=== PATIENT | female | born 1995 | race Caucasian/White ===

== ENCOUNTER → 2020-02-18 08:30 | Outpatient (CLI) | payer OTHER, SELFPAY ==
[2020-02-18] MEDS: COVID-19 VACC(MODERNA-1)/PF 100 MCG/0.5 ML VIAL IM (08:40)
== END ==
PROVIDERS: Visit Provider Internal Medicine
DX: Z23 Encounter for immunization (principal)
CPT/HCPCS: 0011A; 91301

== ENCOUNTER → 2020-03-16 08:43 | Outpatient (CLI) | payer OTHER, SELFPAY ==
[2020-03-16] MEDS: COVID-19 VACC #2, MRNA(MOD) 100 MCG/0.5 ML VIAL IM (08:47)
== END ==
PROVIDERS: Visit Provider Internal Medicine
DX: Z23 Encounter for immunization (principal)
CPT/HCPCS: 0012A; 91301

== ENCOUNTER → 2020-09-19 10:12 | Outpatient (CLI) | payer OTHER, SELFPAY ==
[2020-09-19 13:22] LABS: COVID19 -Nasal RAPID Negative (Negative)
== END ==
PROVIDERS: Visit Provider Nurse Practitioner
DX: R43.2 Parageusia (principal); Z20.822 Contact with and (suspected) exposure to COVID-19
CPT/HCPCS: 87635

== ENCOUNTER → 2020-11-25 11:23 | Outpatient (CLI) | payer OTHER, SELFPAY ==
[2020-11-25 13:19] LABS: COVID19 -Nasal RAPID Negative (Negative)
== END ==
PROVIDERS: Referring Provider Nurse Practitioner; Visit Provider Nurse Practitioner
DX: Z20.822 Contact with and (suspected) exposure to COVID-19 (principal)
CPT/HCPCS: 87635

== ENCOUNTER → 2021-02-10 09:13 | Outpatient (CLI) | payer OTHER, SELFPAY ==
[2021-02-10 09:42] LABS: COVID19 -Nasal RAPID Negative (Negative)
== END ==
PROVIDERS: Visit Provider Nurse Practitioner Family
DX: Z20.822 Contact with and (suspected) exposure to COVID-19 (principal)
CPT/HCPCS: 87635

== ENCOUNTER → 2021-05-08 08:16 | Outpatient (CLI) | payer OTHER, SELFPAY ==
--- NOTE | 2021-05-08 08:18 | DI.US.S_ITS ---
PROCEDURE: US OB <= 14 WEEKS FETUS INDICATIONS: DATES OUTSIDE/PRIOR DATING DATA: Last menstrual period (LMP): Unknown LMP-based estimated date of delivery (SUKHWINDER): Not applicable. First dating scan (date and location): 05/08/2021. Estimated date of delivery (SUKHWINDER) from first dating scan: 11/30/2021. The calculations are made using the ultrasound derived SUKHWINDER of 12/02/2021. TECHNIQUE: Real-time scanning was performed of the fetus and maternal pelvic organs, with image documentation. Endovaginal scanning was also performed to better visualize the fetus and maternal ovaries. COMPARISON: None. FINDINGS: Cooter-rump length 3.7 centimeters. heart rate 160 beats per minute. Ovaries unremarkable. IMPRESSION: Single live intrauterine gestation with estimated ultrasound age 10 weeks 4 days. We strive to produce accurate, complete, and clear reports of imaging services. To assist us in improving patient care, this report was composed using standard report templates and voice recognition software. Therefore, it may contain abnormal punctuation, insertions and/or omissions. Occasional wrong-word or sound-alike substitutions may occur. Though we review the report and make efforts to correct it, we do recommend that the report be read carefully in proper context to recognize any text inaccuracies. Dictated by: Abrahan Noble M.D. on 05/08/2021 at 9:40 Approved by: Abrahan Noble M.D. on 05/08/2021 at 9:42
[2021-05-08 09:49] LABS: Add Manual Diff / Slide Review NO; Basophils Absolute Auto 0 /uL (0-100); Basophils Percent Auto 0.1 % (0-2); Eosinophils Absolute Auto 100 /uL (0-450); Eosinophils Percent Auto 0.8 % (2-4); Hematocrit 37.1 % (36-46); Hemoglobin 12.9 g/dL (12.0-16.0); Lymphocytes Absolute Auto 2100 /uL (1100-4500); Lymphocytes Percent Auto 19.9 % (25-40); Mean Corpuscular HGB Conc 34.6 % (30-36); Mean Corpuscular Hemoglobin 31.2 PG (26-34); Mean Corpuscular Volume 90.1 fL (80-100); Monocytes Absolute Auto 500 /uL (0-900); Monocytes Percent Auto 4.8 % (3-14); Neutrophils Absolute Auto 7700 /uL (1500-7000); Neutrophils Percent Auto 74.4 % (50-75); Platelet Count 247 X10^3/uL (150-400); Red Blood Cell Count 4.12 X10^6/uL (4.0-5.2); Red Cell Distribution Width 12.9 % (11.6-14.8); White Blood Cell Count 10.4 X10^3/uL (4.5-11.0)
[2021-05-08 17:51] LABS: Hepatitis B Surface Antigen NEGATIVE s/c (NEGATIVE); Rubella Antibody IgG 15.5 IU/mL (>15)
[2021-05-08 18:08] LABS: HIV 1 & 2 Ab/Ag 4th Gen Combo NEGATIVE (NEGATIVE); Hep C Virus Ab w/Reflex Quant NEGATIVE s/c (NEGATIVE)
[2021-05-09 04:37] LABS: RPR Screen Non Reactive (Non Reactive)
[2021-05-09 15:46] LABS: Varicella IgG Antibody <135 index (Immune >165)
== END ==
PROVIDERS: PCP Internal Medicine; Referring Provider Obstetrics & Gynecology; Visit Provider Obstetrics & Gynecology
DX: Z34.01 Encounter for supervision of normal first pregnancy, first trimester (principal); Z3A.10 10 weeks gestation of pregnancy
CPT/HCPCS: 36415; 76801; 76817; 80055; 86787; 86803; 86850; 86900; 86901; 87389

== ENCOUNTER → 2021-05-10 09:37 | Outpatient (CLI) | payer OTHER, SELFPAY ==
[2021-05-10 10:08] LABS: Appearance Urine UA CLEAR; Bilirubin Urine UA NEGATIVE (NEGATIVE); Color Urine UA YELLOW; Glucose Urine UA TRACE g/dL (Negative); Ketones Urine UA NEGATIVE (NEGATIVE); Leukocyte Esterase Urine UA 1+ (NEGATIVE); Nitrite Urine UA NEGATIVE (Negative); Occult Blood Urine UA NEGATIVE (Negative); Protein Urine UA NEGATIVE (Negative); Specific Gravity Urine UA 1.015 (1.000-1.035); Urobilinogen Urine UA 0.2 E.U./dL (0.2)
[2021-05-10 10:10] LABS: RBC Urine None Seen (0-5/HPF); WBC Urine 1-5/HPF (0-5/HPF); pH Urine UA 6.5 (4.5-8.0)
[2021-05-10 10:11] LABS: Amorphous Sediment Urine 1+; Bacteria Urine None Seen; Culture Indicated Urine Cult Not Indicated
[2021-05-10 12:16] LABS: Urine N gonorrhoeae NOT DETECTED
[2021-05-10 12:23] LABS: Urine Chlamydia NOT DETECTED
== END ==
PROVIDERS: PCP Internal Medicine; Referring Provider Obstetrics & Gynecology; Visit Provider Obstetrics & Gynecology
DX: Z34.01 Encounter for supervision of normal first pregnancy, first trimester (principal); Z3A.10 10 weeks gestation of pregnancy; Z34.00 Encounter for supervision of normal first pregnancy, unspecified trimester
CPT/HCPCS: 81003; 81015; 87086; 87491; 87591

== ENCOUNTER → 2021-07-05 09:07 | Outpatient (CLI) | payer OTHER, BC, SELFPAY ==
[2021-07-07 20:35] LABS: Estriol, Free 1.85 ng/mL (.); Inhibin A, Dimeric 282.94 pg/mL (.); Inhibin A, MoM 2.29 (.); Maternal Ethnicity Caucasian (.); Maternal Weight 223 lbs (.); Number of Fetuses No (.); OSBR Risk 1 IN 2886 (.); Results Report (.); Test Results *Screen Negative* (.); hCG, MoM 1.19 (.); hCG, Serum 26456 mIU/mL (.)
== END ==
PROVIDERS: PCP Internal Medicine; Referring Provider Obstetrics & Gynecology; Visit Provider Obstetrics & Gynecology
DX: Z34.02 Encounter for supervision of normal first pregnancy, second trimester (principal); Z3A.18 18 weeks gestation of pregnancy
CPT/HCPCS: 36415; 82105; 82677; 84702; 86336

== ENCOUNTER → 2021-07-17 07:59 | Outpatient (CLI) | payer OTHER, BC, SELFPAY ==
--- NOTE | 2021-07-17 08:01 | DI.US.S_ITS ---
PROCEDURE: US OB >= 14 WEEKS FETUS INDICATIONS: 20 Week Anatomy Scan OUTSIDE/PRIOR DATING DATA: First dating scan (date and location): 05/08/2021. Estimated date of delivery (SUKHWINDER) from first dating scan: 11/30/2021. TECHNIQUE: Real-time scanning was performed of the fetus, with image documentation and biometric measurements. COMPARISON: [facility], , OB <= 14 WEEKS FETUS, 05/08/2021, 8:24. FINDINGS: General: A single living intrauterine gestation is present. Presentation: Vertex. Placenta: Placental position is posterior, without previa. Amniotic fluid index: 12.6 cm, normal range is 5-24 cm. Single deepest vertical pocket is 4.1 cm. heart rate: 145 beats per minute. Maternal cervical canal: 5.3 cm long. Normal lower limit is 2.5 cm. biometrics: Biparietal diameter: 4.6 cm, 20 weeks 0 days Head circumference: 17.7 cm, 20 weeks 1 day Abdominal circumference: 15.7 cm, 20 weeks 6 days Femur length: 3.7 cm, 21 weeks 4 days Clinically estimated gestational age: 20 weeks 4 days Composite gestational age from present scan: 20 weeks 5 days Estimated weight and percentile: 394 g, 71st percentile Anatomic survey: Neuro: Ventricles are non-dilated at less than 10 mm. Cisterna magna is normal at 3-11 mm. Cerebellum is normal in size and morphology. Nuchal skin fold: Normal at less than 6 mm between 14-21 weeks gestational age. Face: Nose and lips, facial profile are normal. Spine: No evidence for spina bifida. Heart: 4-chambered heart is present, with normal ventricular outflow tracts. Diaphragm: Diaphragm is intact. Stomach: Left-sided stomach is present. Kidneys: No hydronephrosis. Normal is less than 5 mm in 2nd trimester, less than 7 mm in 3rd trimester. Cord: 3-vessel cord has orthotopic insertion. Bladder: Normal in size. Extremities: All 4 extremities identified. IMPRESSION: 1. Peña living intrauterine at 20 weeks 5 days based on today's ultrasound. This is concordant with the prior ultrasound. There is expected interval growth. 2. Normal placenta and amniotic fluid. 3. Normal and complete anatomic survey. We strive to produce accurate, complete, and clear reports of imaging services. To assist us in improving patient care, this report was composed using standard report templates and voice recognition software. Therefore, it may contain abnormal punctuation, insertions and/or omissions. Occasional wrong-word or sound-alike substitutions may occur. Though we review the report and make efforts to correct it, we do recommend that the report be read carefully in proper context to recognize any text inaccuracies. Dictated by: Tito Barillas M.D. on 07/17/2021 at 9:47 Approved by: Tito Barillas M.D. on 07/17/2021 at 9:51
== END ==
PROVIDERS: PCP Internal Medicine; Referring Provider Obstetrics & Gynecology; Visit Provider Obstetrics & Gynecology
DX: Z34.02 Encounter for supervision of normal first pregnancy, second trimester (principal); Z3A.20 20 weeks gestation of pregnancy
CPT/HCPCS: 76811

== ENCOUNTER → 2021-09-20 10:47 | Outpatient (CLI) | payer OTHER, BC, SELFPAY ==
[2021-09-20 12:46] LABS: Hematocrit 37.2 % (36-46)
[2021-09-20 13:13] LABS: GTT (PREG) 1 Hour PP 50gm Dose 115 mg/dL (76-139)
== END ==
PROVIDERS: PCP Internal Medicine; Referring Provider Obstetrics & Gynecology; Visit Provider Obstetrics & Gynecology
DX: Z34.02 Encounter for supervision of normal first pregnancy, second trimester (principal); Z3A.26 26 weeks gestation of pregnancy
CPT/HCPCS: 36415; 82950; 85014; 85018

== ENCOUNTER → 2021-09-21 15:14 | Outpatient (CLI) | payer OTHER, BC, SELFPAY | PROVIDERS: PCP Internal Medicine; Visit Provider Physician Assistant Medical | DX: R82.90 Unspecified abnormal findings in urine (principal) | CPT/HCPCS: 87086 ==

== ENCOUNTER → 2021-09-28 10:59 | Outpatient (CLI) | payer OTHER, BC, SELFPAY ==
--- NOTE | 2021-09-28 11:00 | DI.US.S_ITS ---
PROCEDURE: US OB FOLLOW UP INDICATIONS: Growth US OUTSIDE/PRIOR DATING DATA: Last menstrual period (LMP): Not available. LMP-based estimated date of delivery (SUKHWINDER): Not available. First dating scan (date and location): 04/30/2021 at . Estimated date of delivery (SUKHWINDER) from first dating scan: 11/30/2021. TECHNIQUE: Real-time scanning was performed of the fetus, with image documentation and biometric measurements. Endovaginal scanning: Not performed. COMPARISON: [facility], OB >= 14 WEEKS FETUS, 07/17/2021, 9:14. [facility], OB <= 14 WEEKS FETUS, 05/08/2021, 8:24. FINDINGS: General: A single living intrauterine gestation is present. Presentation: Breech. Placenta: Placental position is posterior , without previa. Amniotic fluid index: 13.0 cm, normal range is 5-24 cm. Single deepest vertical pocket is 3.3 cm. heart rate: 163 beats per minute. Maternal cervical canal: 5.5 cm long. Normal lower limit is 2.5 cm. biometrics: Biparietal diameter: 31 weeks 3 days Head circumference: 31 weeks 3 days Abdominal circumference: 30 weeks 6 days Femur length: 31 weeks 2 days Clinically estimated gestational age: 30 weeks 6 days Composite gestational age from present scan: 31 weeks 2 days Estimated weight and percentile: 1698 g; 45% Other: Not applicable. IMPRESSION: 1. A single living intrauterine gestation with appropriate interval growth. 2. Estimated weight is at the 45th percentile. We strive to produce accurate, complete, and clear reports of imaging services. To assist us in improving patient care, this report was composed using standard report templates and voice recognition software. Therefore, it may contain abnormal punctuation, insertions and/or omissions. Occasional wrong-word or sound-alike substitutions may occur. Though we review the report and make efforts to correct it, we do recommend that the report be read carefully in proper context to recognize any text inaccuracies. Dictated by: Akosua Ramirez M.D. on 09/29/2021 at 10:46 Approved by: Akosua Ramirez M.D. on 09/29/2021 at 10:49
== END ==
PROVIDERS: PCP Internal Medicine; Referring Provider Obstetrics & Gynecology; Visit Provider Obstetrics & Gynecology
DX: Z3A.30 30 weeks gestation of pregnancy; Z36.2 Encounter for other antenatal screening follow-up
CPT/HCPCS: 76816

== ENCOUNTER → 2021-10-18 08:38 | Outpatient (CLI) | payer OTHER, BC, SELFPAY | PROVIDERS: PCP Internal Medicine; Visit Provider Obstetrics & Gynecology | DX: R31.9 Hematuria, unspecified (principal) | CPT/HCPCS: 87077; 87086; 87186 ==

== ENCOUNTER → 2021-11-08 13:42 | Outpatient (CLI) | payer OTHER, BC, SELFPAY ==
[2021-11-09 16:55] LABS: Strep Grp B PCR POS for Grp B Strep
== END ==
PROVIDERS: PCP Internal Medicine; Visit Provider Obstetrics & Gynecology
DX: Z34.03 Encounter for supervision of normal first pregnancy, third trimester (principal); Z3A.36 36 weeks gestation of pregnancy
CPT/HCPCS: 87077; 87086; 87186; 87653

== ENCOUNTER → 2021-11-15 13:39 | Outpatient (CLI) | payer OTHER, BC, SELFPAY ==
[2021-11-15 15:56] LABS: Protein (Total) Urine Random 16 mg/dL (0-12); Protein Creatinine Ratio Urine 0.22 GRAM/24H
== END ==
PROVIDERS: PCP Internal Medicine; Visit Provider Obstetrics & Gynecology
DX: O16.3 Unspecified maternal hypertension, third trimester (principal); R80.9 Proteinuria, unspecified; Z3A.37 37 weeks gestation of pregnancy
CPT/HCPCS: 82570; 84156

== ENCOUNTER → 2021-11-15 13:46 | Outpatient (CLI) | payer OTHER, BC, SELFPAY ==
[2021-11-15 14:06] LABS: Add Manual Diff / Slide Review NO; Basophils Absolute Auto 0 /uL (0-100); Basophils Percent Auto 0.3 % (0-2); Eosinophils Absolute Auto 100 /uL (0-450); Eosinophils Percent Auto 0.5 % (2-4); Hematocrit 40.4 % (36-46); Hemoglobin 13.8 g/dL (12.0-16.0); Lymphocytes Absolute Auto 1800 /uL (1100-4500); Lymphocytes Percent Auto 15.9 % (25-40); Mean Corpuscular HGB Conc 34.1 % (30-36); Mean Corpuscular Hemoglobin 30.9 PG (26-34); Mean Corpuscular Volume 90.8 fL (80-100); Monocytes Absolute Auto 700 /uL (0-900); Monocytes Percent Auto 6.3 % (3-14); Neutrophils Absolute Auto 8600 /uL (1500-7000); Platelet Count 289 X10^3/uL (150-400); Red Blood Cell Count 4.45 X10^6/uL (4.0-5.2); Red Cell Distribution Width 14.7 % (11.6-14.8); White Blood Cell Count 11.2 X10^3/uL (4.5-11.0)
[2021-11-15 14:18] LABS: Alanine Aminotransferase 183 IU/L (<35); Albumin 3.3 g/dL (3.5-5.0); Albumin Globulin Ratio 0.9 (1.0-2.8); Alkaline Phosphatase 182 U/L (38-126); Aspartate Aminotransferase 136 IU/L (14-36); BUN Creatinine Ratio 11.8 (6-22); Bilirubin Total 0.6 mg/dL (0.2-1.3); Blood Urea Nitrogen 6 mg/dL (7-17); Calcium 8.5 mg/dL (8.4-10.2); Carbon Dioxide 19 mmol/L (22-32); Chloride 108 mmol/L (98-107); Estimated Glomerular Filt Rate > 60 mL/min (>60); Globulin 3.6 g/dL (1.7-4.1); Glucose 120 mg/dL (70-100); HEMOLYSIS < 15 (0-50); Potassium 4.2 mmol/L (3.4-5.1); Sodium 137 mmol/L (137-145); Total Protein 6.9 g/dL (6.3-8.2); Uric Acid 3.8 mg/dL (2.5-6.2)
== END ==
PROVIDERS: PCP Internal Medicine; Referring Provider Obstetrics & Gynecology; Visit Provider Obstetrics & Gynecology
DX: O16.3 Unspecified maternal hypertension, third trimester (principal); R80.9 Proteinuria, unspecified
CPT/HCPCS: 36415; 80053; 84550; 85025

== ENCOUNTER 2021-11-15 13:50 | Observation (INO) | payer OTHER, BC, SELFPAY ==
--- NOTE | 2021-11-15 15:35 | P.HPOB_ITS ---
OB HPI Date/Time Date of admission: 11/15/21 Date Patient Seen: 11/15/21 Time Patient Seen: 15:35 History of Present Condition Chief complaint: IUP, 37+3 wks. EGA, PEC w/ severe features, GBS+ : 1 Para: 0 Estimated Date of Delivery: 12/03/21 Estimated Gestational Age (weeks): 37+3 Narrative: Taty Woods is a 26 year old female Indications Indication for induction OB: gestational HTN/pre-eclampsia History of Present care: good care Dating criteria: LMP confirmed by 1st trimester US Ultrasounds: normal 1st trimester US and normal mid trimester US Obstetrical complications: gestational hypertension Preadmission Labs Blood type: A (+) positive -: Antibody screen: negative, GBS status: negative, HBsAG: negative, HIV: negative and RPR/VDLR: negative -: Chlamydia screen: not detected and Gonorrhea screen: not detected -: Rubella: immune and Varicella: not immune HCT: 40.4 HCAB: negative PAP: Normal Quad screen: Normal 1 hr GTT: 115 Prior (ies) History: N/A Evaluation Evaluation Baseline heart rate: 155 Variability: Moderate (11-25) monitor accelerations: Present Monitor Decelerations: Absent Category of Tracing: Reactive [facility] Medical History (Updated 11/15/21 @ 13:53 by Christopher Flores MD) Acne (~2007) Allergy to nuts Asthma (1997) Asthma (~1993) Eczema (1995) Eczema (~1993) Food allergy Fx wrist Seasonal allergies Surgical History (Updated 06/26/21 @ 09:02 by Camilo Raymond) Anesthesia Anesthesia Encounter for cholecystectomy (~2013) Encounter for insertion of mirena IUD (~09/2016) History of bladder surgery History of third molar tooth extraction (01/2011) Status post laparoscopic cholecystectomy (12/2013) Status post urinary system surgery (12/1994) [place] teeth removed (~2009) Family History (System 06/26/21 @ 09:02 by Camilo Raymond) Father No problems noted. Mother Hypertension Grandfather Aortic rupture Grandmother Diabetes mellitus Heart disease Hypertension Grandfather Hypertension Grandmother Cancer Lung cancer Heart disease Smoker Father Hypertension Mother Clotting disorder Pulmonary emboli Spontaneous Vanishing twin syndrome Hypertension Grandmother Diabetes mellitus Hypertension Grandfather History of heart disease Grandfather Hypertension Grandmother Cancer Hypertension Smoker Social History (System 06/26/21 @ 09:02 by Camilo Raymond) marital status: number of children: 0 household members: spouse lives independently: Yes pets and animals: Yes (Dog - aware of toxoplasmosis) education level: college occupational status: employed current occupational exposures/hazards: No charli/adventism: [employer] seatbelt use: always water heater temp set < 120 deg: Yes working smoke detector in home: Yes fire extinguisher in home: No (Home security system) carbon monox detector in home: Yes firearms in home: Yes firearms unloaded and locked: Yes do you feel safe at home: Yes Smoking Status: Never smoker second hand exposure: No alcohol intake: former substance use type: does not use during the past year weight has: decreased > 10 lbs well-balanced diet: daily or most days daily servings fruits/ve-4 caffeine: Yes (200mg limit) Type(s) of exercise: walking Meds Home Medications and Allergies Home Medications Medication Instructions Recorded Confirmed Type levonorgestrel-ethinyl estradiol 1 tab PO QDAY ##3 05/30/16 11/15/21 Rx 0.1 mg-20 mcg tablet (Falmina (28)) cholecalciferol (vitamin D3) 125 125 mcg PO DAILY 04/10/21 11/15/21 History mcg (5,000 unit) capsule doxylamine succinate 25 mg tablet 25 mg PO BEDTIME PRN 04/10/21 11/15/21 History (Unisom (doxylamine)) vitamin #56-iron 35 mg 1 cap PO DAILY 04/10/21 11/15/21 History and 5 mg-folic acid 1 mg-dha capsule pyridoxine (vitamin B6) 100 mg 50 mg PO DAILY 04/10/21 11/15/21 History tablet cetirizine 10 mg tablet (Zyrtec) 10 mg PO DAILY PRN 04/26/21 11/15/21 History epinephrine 0.3 mg/0.3 mL 0.3 mg IM Q4H PRN 04/26/21 11/15/21 History injection, auto-injector (EpiPen 2-Matt) ciprofloxacin HCl 500 mg tablet 500 mg PO BID 7 days #14 tabs 11/13/21 11/15/21 Rx Allergies Allergy/AdvReac Type Severity Reaction Status Date / Time tree nut Allergy Severe Anaphylaxis Verified 11/15/21 13:20 codeine [CODEINE] Allergy Unknown Unverified 11/15/21 13:20 Sulfa (Sulfonamide Allergy Unknown Unverified 11/15/21 13:20 Antibiotics) [SULFA (SULFONAMIDE ANTIBIOTICS)] OB Exam HENMT Head: normal to inspection, normocephalic and atraumatic Eyes General: appearance normal, both eyes and all related structures Resp Effort & Inspection: normal respiratory effort and able to speak in complete sentences Auscultation: clear to auscultation bilaterally Cardio Rate: regular rate Rhythm: regular rhythm Heart Sounds: S1 normal, S2 normal and no murmurs Extremities Lower extremity: Yes normal to inspection GI Inspection: normal to inspection Palpation: Yes soft and Yes no hepatosplenomegaly
--- NOTE | 2021-11-19 10:47 | PM.OBTRLD ---
Visit Information Visit Information Date of evaluation: 11/15/21 Primary OB Provider: Christopher Flores Reason for Evaluation: Yes non-stress test Comments/Additional reasons for admission: Mild BP elevation in-office, R/O PEC. She denies any H/A/visual changes, or RUQ pain/tenderness [facility] Medical History (Updated 11/19/21 @ 10:22 by Crhistopher Flores MD) Acne (~2007) Allergy to nuts Asthma (1997) Asthma (~1993) Eczema (1995) Eczema (~1993) Food allergy Fx wrist Seasonal allergies Surgical History (Updated 06/26/21 @ 09:02 by Camilo Raymond) Anesthesia Anesthesia Encounter for cholecystectomy (~2013) Encounter for insertion of mirena IUD (~09/2016) History of bladder surgery History of third molar tooth extraction (01/2011) Status post laparoscopic cholecystectomy (12/2013) Status post urinary system surgery (12/1994) [place] teeth removed (~2009) Family History (System 06/26/21 @ 09:02 by Camilo Raymond) Father No problems noted. Mother Hypertension Grandfather Aortic rupture Grandmother Diabetes mellitus Heart disease Hypertension Grandfather Hypertension Grandmother Cancer Lung cancer Heart disease Smoker Father Hypertension Mother Clotting disorder Pulmonary emboli Spontaneous Vanishing twin syndrome Hypertension Grandmother Diabetes mellitus Hypertension Grandfather History of heart disease Grandfather Hypertension Grandmother Cancer Hypertension Smoker Social History (System 06/26/21 @ 09:02 by Camilo Raymond) marital status: number of children: 0 household members: spouse lives independently: Yes pets and animals: Yes (Dog - aware of toxoplasmosis) education level: college occupational status: employed current occupational exposures/hazards: No charli/restorationism: Alevism seatbelt use: always water heater temp set < 120 deg: Yes working smoke detector in home: Yes fire extinguisher in home: No (Home security system) carbon monox detector in home: Yes firearms in home: Yes firearms unloaded and locked: Yes do you feel safe at home: Yes Smoking Status: Never smoker second hand exposure: No alcohol intake: former substance use type: does not use during the past year weight has: decreased > 10 lbs well-balanced diet: daily or most days daily servings fruits/ve-4 caffeine: Yes (200mg limit) Type(s) of exercise: walking Review of Systems Review of Systems Narrative: Problem-specific ROS positives included in HPI Objective Labs Labs: Elevated AST and ALT > 2x N Evaluation Evaluation Baseline heart rate: 145 Variability: Moderate (11-25) monitor accelerations: Present Monitor Decelerations: Absent Category of Tracing: Reactive Status: Category l Diagnosis, Plan/Disposition Final Diagnosis (1) Elevation of levels of liver transaminase levels: Status: Acute (2) Elevated blood pressure affecting in third trimester, antepartum: Status: Acute Plan/Disposition OB Disposition: admit to hospital (Patient will go home and picker and packer a few things with plans to return this evening for initiation of cervical ripening)
== END 2021-11-15 15:25 | disposition home or self-care (01) ==
PROVIDERS: Admitting Provider Obstetrics & Gynecology; PCP Internal Medicine; Referring Provider Obstetrics & Gynecology; Visit Provider Obstetrics & Gynecology
DX: O26.893 Other specified pregnancy related conditions, third trimester (principal); R03.0 Elevated blood-pressure reading, without diagnosis of hypertension; R74.01 Elevation of levels of liver transaminase levels; Z3A.37 37 weeks gestation of pregnancy
CPT/HCPCS: G0378; G0379

== ENCOUNTER 2021-11-15 18:01 | Inpatient (IN) | payer OTHER, BC, SELFPAY ==
--- NOTE | 2021-11-15 18:25 | P.HPOB_ITS ---
OB HPI Date/Time Date of admission: 11/15/21 Date Patient Seen: 11/15/21 Time Patient Seen: 18:25 History of Present Condition Chief complaint: IUP, 37+3 wks EGA, Preeclampsia w/ severe features : 1 Para: 0 Estimated Gestational Age (weeks): 37+3 Narrative: Taty Woods is a 26 year old primigravida who is admitted with non-joanne re BP elevations associated with significant elevations of her AST and ALT levels. Systolic BP's at home have typically been in the high 120's - low 130's but have occasionally been as high as the mid 140's with her diastolics typically in the high 70's to mid 80's. course has generally been unremarkable but her Mother and Maternal Uncle have thrombophilia resulting in DVT's and PE's but negative testing for common thrombophilias. Mother developed DVT with her first . Patient has also been tested (negative) but has never had a VTE or DVT. She has been on daily 81 mg ASA as a precaution since the second trimester. Patient also has a severe nut allergy. GBS is positive. Indications Indication for induction OB: gestational HTN/pre-eclampsia History of Present care: good care Dating criteria: LMP confirmed by 1st trimester US Ultrasounds: normal 1st trimester US and normal mid trimester US Obstetrical complications: preeclampsia Preadmission Labs Blood type: A (+) positive -: Antibody screen: negative, GBS status: positive, HBsAG: negative, HIV: negative and RPR/VDLR: negative -: Chlamydia screen: not detected and Gonorrhea screen: not detected -: Rubella: immune and Varicella: not immune HCT: 40.4 HCAB: negative PAP: Normal Quad screen: Normal 1 hr GTT: 115 Prior (ies) History: N/A Evaluation Evaluation Baseline heart rate: 155 Variability: Moderate (11-25) monitor accelerations: Present Monitor Decelerations: Absent Status: Category l Dilation (cm): 1 Effacement (%): 30 Dilation: Closed Effacement: 0-30% station: -2 Position of cervix: posterior Consistency: medium Orozco score: 2 [facility] Medical History (Updated 11/15/21 @ 13:53 by Christopher Flores MD) Acne (~2007) Allergy to nuts Asthma (1997) Asthma (~1993) Eczema (1995) Eczema (~1993) Food allergy Fx wrist Seasonal allergies Surgical History (Updated 06/26/21 @ 09:02 by Camilo Raymond) Anesthesia Anesthesia Encounter for cholecystectomy (~2013) Encounter for insertion of mirena IUD (~09/2016) History of bladder surgery History of third molar tooth extraction (01/2011) Status post laparoscopic cholecystectomy (12/2013) Status post urinary system surgery (12/1994) [place] teeth removed (~2009) Family History (System 06/26/21 @ 09:02 by Camilo Raymond) Father No problems noted. Mother Hypertension Grandfather Aortic rupture Grandmother Diabetes mellitus Heart disease Hypertension Grandfather Hypertension Grandmother Cancer Lung cancer Heart disease Smoker Father Hypertension Mother Clotting disorder Pulmonary emboli Spontaneous Vanishing twin syndrome Hypertension Grandmother Diabetes mellitus Hypertension Grandfather History of heart disease Grandfather Hypertension Grandmother Cancer Hypertension Smoker Social History (System 06/26/21 @ 09:02 by Camilo Raymond) marital status: number of children: 0 household members: spouse lives independently: Yes pets and animals: Yes (Dog - aware of toxoplasmosis) education level: college occupational status: employed current occupational exposures/hazards: No charli/zoroastrian: Hinduism seatbelt use: always water heater temp set < 120 deg: Yes working smoke detector in home: Yes fire extinguisher in home: No (Home security system) carbon monox detector in home: Yes firearms in home: Yes firearms unloaded and locked: Yes do you feel safe at home: Yes Smoking Status: Never smoker second hand exposure: No alcohol intake: former substance use type: does not use during the past year weight has: decreased > 10 lbs well-balanced diet: daily or most days daily servings fruits/ve-4 caffeine: Yes (200mg limit) Type(s) of exercise: walking Meds Home Medications and Allergies Home Medications Medication Instructions Recorded Confirmed Type cholecalciferol (vitamin D3) 125 125 mcg PO DAILY 04/10/21 11/15/21 History mcg (5,000 unit) capsule doxylamine succinate 25 mg tablet 25 mg PO BEDTIME PRN Sleep 04/10/21 11/15/21 History (Unisom (doxylamine)) vitamin #56-iron 35 mg 1 cap PO DAILY 04/10/21 11/15/21 History and 5 mg-folic acid 1 mg-dha capsule pyridoxine (vitamin B6) 100 mg 50 mg PO DAILY 04/10/21 11/15/21 History tablet cetirizine 10 mg tablet (Zyrtec) 10 mg PO DAILY PRN Allergy Symptoms 04/26/21 11/15/21 History epinephrine 0.3 mg/0.3 mL 0.3 mg IM Q4H PRN Allergic Reaction 04/26/21 11/15/21 History injection, auto-injector (EpiPen 2-Matt) Allergies Allergy/AdvReac Type Severity Reaction Status Date / Time tree nut Allergy Severe Anaphylaxis Verified 11/15/21 13:20 codeine [CODEINE] Allergy Unknown Verified 11/15/21 20:42 Sulfa (Sulfonamide Allergy Unknown Verified 11/15/21 20:42 Antibiotics) [SULFA (SULFONAMIDE ANTIBIOTICS)] Review of Systems Review of Systems Narrative: Problem-specific ROS positives included in HPI OB Exam HENMT Head: normal to inspection, normocephalic and atraumatic Eyes General: appearance normal, both eyes and all related structures Resp Effort & Inspection: normal respiratory effort and able to speak in complete sentences Auscultation: clear to auscultation bilaterally Cardio Rate: regular rate Rhythm: regular rhythm Heart Sounds: S1 normal, S2 normal and no murmurs Extremities Lower extremity: Yes normal to inspection GI Inspection: normal to inspection Palpation: Yes soft and Yes no hepatosplenomegaly Uterus Location (Fundal Height): 38 Estimated Weight (lbs): 7 Objective Labs Result Diagrams: 11/16/21 06:23 Assessment and Plan Assessment and Plan Assessment and Plan narrative: ASSESSMENT 1. IUP, Peña, 37+3 weeks EGA 2. Preeclampsia w/ severe features (Elevated LFT's) 3. GBS positive status PLAN 1. Admit for cervical ripening/induction 2. See admission orders 3. If BP approaches severe range or other severe factors develop, will initiate MGSO4 and treat BP as appropriate. Time Spent with Patient Total time spent with greater than 50% in coordination of care (as documented) at patient's floor/unit and/or counseling patient:: 15-24 minutes
[2021-11-15 20:05] VITALS: BP 111/66
[2021-11-15] MEDS: miSOPROStoL 25 MCG TABLET 50 MCG PO (20:27)
[2021-11-15 20:45] LABS: Add Manual Diff / Slide Review NO; Basophils Absolute Auto 0 /uL (0-100); Basophils Percent Auto 0.2 % (0-2); Eosinophils Absolute Auto 0 /uL (0-450); Eosinophils Percent Auto 0.2 % (2-4); Hemoglobin 13.5 g/dL (12.0-16.0); Lymphocytes Absolute Auto 2000 /uL (1100-4500); Lymphocytes Percent Auto 13.2 % (25-40); Mean Corpuscular HGB Conc 34.6 % (30-36); Mean Corpuscular Hemoglobin 31.5 PG (26-34); Monocytes Absolute Auto 700 /uL (0-900); Monocytes Percent Auto 4.7 % (3-14); Neutrophils Absolute Auto 12300 /uL (1500-7000); Neutrophils Percent Auto 81.7 % (50-75); Platelet Count 299 X10^3/uL (150-400); Red Blood Cell Count 4.28 X10^6/uL (4.0-5.2); Red Cell Distribution Width 15.1 % (11.6-14.8); White Blood Cell Count 15.1 X10^3/uL (4.5-11.0)
[2021-11-15 21:00] LABS: COVID19 -Nasal RAPID Negative (Negative)
[2021-11-16] MEDS: miSOPROStoL 25 MCG TABLET 50 MCG PO ×2 (02:30→09:22)
[2021-11-16 06:33] LABS: Add Manual Diff / Slide Review NO; Basophils Absolute Auto 0 /uL (0-100); Basophils Percent Auto 0.3 % (0-2); Eosinophils Absolute Auto 100 /uL (0-450); Eosinophils Percent Auto 0.5 % (2-4); Hematocrit 38.9 % (36-46); Hemoglobin 13.4 g/dL (12.0-16.0); Lymphocytes Absolute Auto 1900 /uL (1100-4500); Lymphocytes Percent Auto 14.9 % (25-40); Mean Corpuscular HGB Conc 34.4 % (30-36); Mean Corpuscular Hemoglobin 31.3 PG (26-34); Monocytes Absolute Auto 900 /uL (0-900); Monocytes Percent Auto 6.8 % (3-14); Neutrophils Absolute Auto 9800 /uL (1500-7000); Neutrophils Percent Auto 77.5 % (50-75); Platelet Count 267 X10^3/uL (150-400); Red Blood Cell Count 4.27 X10^6/uL (4.0-5.2); White Blood Cell Count 12.7 X10^3/uL (4.5-11.0)
[2021-11-16 06:41] LABS: Alanine Aminotransferase 229 IU/L (<35); Albumin 3.3 g/dL (3.5-5.0); Alkaline Phosphatase 193 U/L (38-126); Aspartate Aminotransferase 181 IU/L (14-36); Bilirubin Total 0.7 mg/dL (0.2-1.3); Bilirubin Unconjugated 0.7 mg/dL (0.0-1.1); Globulin 3.3 g/dL (1.7-4.1); HEMOLYSIS < 15 (0-50); Total Protein 6.6 g/dL (6.3-8.2)
--- NOTE | 2021-11-16 07:41 | PM.OBPNLAB ---
Date/Time Date Patient Seen: 11/16/21 Time Patient Seen: 07:41 Pain Control Pain control: tolerating well Comments: Patient received two doses of PO cytotec 50 mcg overnight with minimal contraction activity Pelvic Exam Dilation (cm): 1 Effacement (%): 30 station: -2 Amniotic membrane status: Intact Contractions Contractions on admission: none Monitor mode: External Contraction pattern: Irregular Contraction intensity: Mild Status status: Category l Heart Rate Baseline: 145 Monitor Accelerations: Present Monitor Decelerations: Absent Monitor Variability: Moderate Assessment and Plan Assessment: other (Cervical ripening ongoing) Plan: continuous present management Comments: Will continue use of Cytotec 50 mcg p.o. q.6 hours today and reassess later today for progress. If cervical dilation is adequate and the cervix rotates more anteriorly, placement of a cervical balloon would be feasible. Blood pressure remains in the non severe range but AST and ALT levels have increased slightly over the last 24 hours and will continue close observation.
[2021-11-16] MEDS: ACETAMINOPHEN 325 MG TABLET 975 MG PO (08:51)
--- NOTE | 2021-11-16 17:14 | PM.OBPNLAB ---
Date/Time Date Patient Seen: 11/16/21 Time Patient Seen: 17:14 Pain Control Pain control: tolerating well Pelvic Exam Dilation (cm): 1 Effacement (%): 60 station: -2 Amniotic membrane status: Intact Comments: Cervix is soft and in intermediate position. Orozco's score now 4-5. Contractions Contractions on admission: none Monitor mode: External Contraction pattern: Irregular Contraction intensity: Mild Status status: Category l Heart Rate Baseline: 145 Monitor Accelerations: Episodic Monitor Decelerations: Absent Monitor Variability: Moderate Assessment and Plan Assessment: other (Ripening ongoing) Plan: other Comments: Will place Cervidil PV this p.m. in anticipation that she will be significantly more favorable in the morning and Pitocin can be initiated at that time. Patient is aware fo the plan and agrees.
[2021-11-16] MEDS: DINOPROSTONE VAG (CERVIDIL) 10 MG VAG (19:15)
[2021-11-16] MEDS: ZOLPIDEM 5 MG TABLET PO (21:19)
[2021-11-17] VITALS (8 sets, daily range): BP systolic 91–111; BP diastolic 54–69; PULSE 61–69; RESP 10–16; TEMP 36.4–36.6; O2SAT 98–99
[2021-11-17] MEDS: ACETAMINOPHEN 325 MG TABLET 975 MG PO (02:53)
[2021-11-17] MEDS: LACTATED RINGERS 1,000 ML 999 ML IV ×2 (03:08→05:56)
[2021-11-17 04:19] LABS: Creatinine Urine Random 94.8 mg/dL; Protein (Total) Urine Random 17 mg/dL (0-12); Protein Creatinine Ratio Urine 0.17 GRAM/24H
[2021-11-17] MEDS: fentaNYL 100 MCG/2 ML INJ 50 MCG IV (04:52)
[2021-11-17 07:26] LABS: Add Manual Diff / Slide Review NO; Basophils Absolute Auto 100 /uL (0-100); Basophils Percent Auto 0.3 % (0-2); Eosinophils Absolute Auto 0 /uL (0-450); Eosinophils Percent Auto 0.1 % (2-4); Hematocrit 40.2 % (36-46); Hemoglobin 13.7 g/dL (12.0-16.0); Lymphocytes Absolute Auto 1600 /uL (1100-4500); Lymphocytes Percent Auto 10.3 % (25-40); Mean Corpuscular HGB Conc 34.1 % (30-36); Monocytes Absolute Auto 800 /uL (0-900); Monocytes Percent Auto 4.9 % (3-14); Neutrophils Absolute Auto 13400 /uL (1500-7000); Neutrophils Percent Auto 84.4 % (50-75); Platelet Count 257 X10^3/uL (150-400); Red Blood Cell Count 4.41 X10^6/uL (4.0-5.2); Red Cell Distribution Width 14.8 % (11.6-14.8); White Blood Cell Count 15.8 X10^3/uL (4.5-11.0)
[2021-11-17 07:32] LABS: Alanine Aminotransferase 299 IU/L (<35); Albumin 3.1 g/dL (3.5-5.0); Albumin Globulin Ratio 0.9 (1.0-2.8); Alkaline Phosphatase 210 U/L (38-126); Aspartate Aminotransferase 236 IU/L (14-36); Bilirubin Total 0.6 mg/dL (0.2-1.3); Bilirubin Unconjugated 0.6 mg/dL (0.0-1.1); Globulin 3.3 g/dL (1.7-4.1); HEMOLYSIS < 15 (0-50); Total Protein 6.4 g/dL (6.3-8.2); Uric Acid 6.8 mg/dL (2.5-6.2)
--- NOTE | 2021-11-17 07:40 | P.PNOB_ITS ---
Date/Time Date Patient Seen: 11/17/21 Time Patient Seen: 07:40 Pain Control Pain control: tolerating well Comments: Significant cramping overnight with Cervidil Pelvic Exam Dilation (cm): 1 Effacement (%): 60 station: -2 Amniotic membrane status: Intact Comments: Unable to assess cervix due to patient tension. IV fentanyl given to permit cervical assessment; no change since last PM despite cervidil. Contractions Contractions on admission: none Monitor mode: External Contraction pattern: Irregular Contraction intensity: Mild Status status: Category l Heart Rate Baseline: 145 Monitor Accelerations: Present Monitor Decelerations: Absent Monitor Variability: Moderate Comments: Transient loss of variability following Fentanyl administration and some mild decelerations Assessment and Plan Assessment: other (Ripening continues; will initiate pitocin augmentation if BS >6.) Comments: LFT's continue to rise slowly. BP remains in non-severe range. Will place JAYCE to permit possible cervical balloon placement w/ or w/o pitocin augmentation. Also discussed was the option of for failed induction at any point given lack of cervical change in the face of slowly rising LFT's due to PEC. Objective Labs Result Diagrams: 11/17/21 07:11 Labs: Laboratory Results - last 24 hr 11/17/21 11/17/21 11/17/21 03:55 07:11 07:11 WBC 15.8 H RBC 4.41 Hgb 13.7 Hct 40.2 MCV 91.0 MCH 31.0 MCHC 34.1 RDW 14.8 Plt Count 257 Neut % (Auto) 84.4 H Lymph % (Auto) 10.3 L [place] % (Auto) 4.9 Eos % (Auto) 0.1 L Baso % (Auto) 0.3 Neut # (Auto) 85539 H Lymph # (Auto) 1600 [place] # (Auto) 800 Eos # (Auto) 0 Baso # (Auto) 100 Uric Acid 6.8 H Total Bilirubin 0.6 Conjugated Bilirubin 0.0 Unconjugated Bilirubin 0.6 AST 236 H ALT 299 H Alkaline Phosphatase 210 H Total Protein 6.4 Albumin 3.1 L Globulin 3.3 Albumin/Globulin Ratio 0.9 L U Random Total Protein 17 H Urine Creatinine 94.8 Protein/Creatinin Ratio 0.17
--- NOTE | 2021-11-17 09:16 | PM.AN.REGBLK ---
Regional Block Pre-procedure Procedure: Continuous Lumbar Epidural for L&D Attending OB provider: Christopher Flores PMH/ROS narrative: at 37+ induction for preecclampsia with severe features (elevated and rising LFT, uric acid). BP's in non-severe range. Platelets normal. BMI 40. ASA Class: III Labs: Hct 40.2 % (36-46) 11/17/21 07:11 Plt Count 257 X10^3/uL (150-400) 11/17/21 07:11 Medications: Current Medications Generic Name Dose Route Start Last Admin Trade Name Freq PRN Reason Stop Dose Admin Acetaminophen 975 mg 11/16/21 08:38 11/17/21 02:53 Acetaminophen 325 Mg Tablet PO 975 mg Q8H PRN Administration Pain, Mild (1-3) Carboprost Tromethamine 250 mcg 11/15/21 18:17 Carboprost 250 Mcg/Ml Ampul IM Q90M PRN Bleeding Fentanyl 50 mcg 11/15/21 18:17 11/17/21 04:52 Fentanyl 100 Mcg/2 Ml Inj IV 50 mcg Q1H PRN Administration Pain, Moderate (4-6) Lactated Ringer's 1,000 mls @ 100 mls/hr 11/15/21 18:30 11/17/21 05:56 Lactated Ringers IV 999 mls/hr CONT RODNEY Administration Oxytocin/Lactated Ringer's 30 unit in 500 mls @ 200 mls/hr 11/15/21 18:17 Oxytocin Premix IV CONT PRN Bleeding Protocol Tranexamic Acid 1,000 mg/ 100 mls @ 200 mls/hr 11/15/21 18:17 Sodium Chloride IV NOW PRN Bleeding Penicillin G Potassium 3,000,000 unit in 50 mls @ 100 mls/hr 11/16/21 16:00 Penicillin G Potassium IV Q4H RODNEY Methylergonovine Maleate 0.2 mg 11/15/21 18:17 Methylergonovine 0.2 Mg Tablet PO Q6HR PRN Heavy Bleeding Methylergonovine Maleate 0.2 mg 11/15/21 18:17 Methylergonovine 0.2 Mg/Ml Vial IM NOW PRN Bleeding Misoprostol 800 mcg 11/15/21 18:17 Misoprostol 200 Mcg Tablet NC NOW PRN Bleeding Misoprostol 1,000 mcg 11/15/21 18:17 Misoprostol 200 Mcg Tablet NC NOW PRN Bleeding Misoprostol 400 mcg 11/15/21 18:17 Misoprostol 200 Mcg Tablet SL NOW PRN Bleeding Misoprostol 50 mcg 11/16/21 02:30 11/16/21 09:22 Misoprostol 25 Mcg Tablet PO 50 mcg Q6H RODNEY Administration Naloxone HCl 0.2 mg 11/15/21 18:17 Naloxone 0.4 Mg/Ml Vial IV Q2MIN PRN Opiate Reversal Ondansetron HCl 8 mg 11/15/21 18:17 Ondansetron 4 Mg/2 Ml Inj IV Q4HR PRN Nausea And Vomiting Oxytocin 10 unit 11/15/21 18:17 Oxytocin 10 Unit/Ml Vial IM NOW PRN Bleeding Zolpidem Tartrate 5 mg 11/15/21 18:21 11/16/21 21:19 Zolpidem 5 Mg Tablet PO 5 mg BEDTIME PRN Administration Sleep Allergies: Allergies Allergy/AdvReac Type Severity Reaction Status Date / Time tree nut Allergy Severe Anaphylaxis Verified 11/15/21 13:20 codeine [CODEINE] Allergy Unknown Verified 11/15/21 20:42 Sulfa (Sulfonamide Allergy Unknown Verified 11/15/21 20:42 Antibiotics) [SULFA (SULFONAMIDE ANTIBIOTICS)]
--- NOTE | 2021-11-17 10:24 | PM.PREOP ---
Pre-operative Note COVID-19 COVID-19 status: Negative Result date/Date tested (Pos, Neg/Pending): 11/15/21 Criteria for continued procedure: Delay expected to result in less-positive ultimate med/surg outcome Interval Note History & Physical reviewed/Exam performed by Physician: Yes Changes to H&P: Yes
--- NOTE | 2021-11-17 10:25 | PM.OBPNLAB ---
Date/Time Date Patient Seen: 11/17/21 Time Patient Seen: 10:25 Pelvic Exam Dilation (cm): 1 Effacement (%): 60 station: -2 Amniotic membrane status: Intact Contractions Contractions on admission: irregular Monitor mode: External Contraction pattern: Irregular Contraction intensity: Mild Status status: Category ll Heart Rate Baseline: 140 Monitor Accelerations: Present Monitor Decelerations: Late (periodic) Monitor Variability: Moderate Assessment and Plan Assessment: other ( intolerance of labor) Plan: Comments: Discussed with patient concern for the intermittent decelerations on the monitor and patient being remote from delivery. Patient is okay to proceed with section. Procedure was discussed with the patient. Risk and benefits discussed. Consent form signed and questions answered.
[2021-11-17] MEDS: CEFAZOLIN 2 GM/100 ML PREMIX 100 ML IV (11:41)
--- NOTE | 2021-11-17 11:58 | SUR.OPER ---
Supine on Padded OR bed, head on pillow, safety belt at thigh, arms secured on padded arm boards at <90 degrees abduction. Bump under right buttock. Legs uncrossed with pillow under knees, gel pad to heels, tape over blanket to lower legs. Gel pad placed between mendoza catheter and thigh.
--- NOTE | 2021-11-17 13:00 | SUR.OPER ---
time of 1207- viable male apgars 4 & 8
--- NOTE | 2021-11-17 13:27 | P.OP_ITS ---
Operative Date/Time/Diagnoses Date of procedure: 11/17/21 Time of procedure: 12:15 Pre-op diagnosis: Intrauterine gestation, dean, 37+5 weeks EGA intolerance of labor Preeclampsia with severe feeatures Post-op diagnosis: same Procedure & Clinicians Procedure: Primary section (Low transverse cervical) Same procedure as scheduled: Yes Indications: Taty Woods is a 26 year old primigravida who was admitted on the evening of 11/15/2021 with non-severe BP elevations associated with significant elevations of her AST and ALT levels.? Systolic BP's at home have typically been in the high 120's - low 130's but have occasionally been as high as the mid 140's with her diastolics typically in the high 70's to mid 80's.? course has generally been unremarkable but she is GBS positive. Following admission for induction, the patient has undergone cervical ripening 1st with oral Cytotec followed by intravaginal Cervidil but her cervix remains only 60% effaced and closed with the vertex remaining at -2 station. On the morning of 11/17/2021 during preparations for placement of a JAYCE to permit placement of a cervical balloon, the baseline increased to the mid-160's, variability became minimal, and intermittent late decelerations developed. Options were then reviewed with the patient and her . With the infant being remote from delivery, the decision was made to proceed to urgent primary section due to intolerance of labor. Surgeon: Christopher Flores Jboss Architect: Earline Pendleton Reason for Jboss Architect: Jboss Architect required for the safe, effective, and timely completion of this surg isaac. Anesthesia Type: Spinal Operative Notes Findings: Viable male infant BW 3742 gms. (8 lbs. 4 oz.), Apgars 4/7/9, delivered from the vertex presentation. Cord pH 7.07/7.10. Normal gravid anatomy. Closure Type: primary Specimen(s): cord blood Intraoperative meds administered: Ketorolac and Pitocin Applied: Catheter Estimated Blood Loss (mL): 600 Blood products transfused: none Procedure in detail: With her informed written consent, the patient was taken to the operating room and placed in the supine position for an urgent primary section procedure, for the indication(s) above. The abdomen was prepped and draped in the usual manner for section and a pre-surgical timeout was taken per [facility] OR protocol. Once effective anesthesia was confirmed, a 15 cm transverse Pfannenstiel incision was made in the skin and taken down through the subcutaneous tissues to the deep fascia. The deep fascia was incised transversely, the rectus abdominal eyes bluntly and sharply, and the peritoneal cavity entered without difficulty. The lower uterine segment was visualized and the position/presentation palpated. A transverse incision at or above the vesicouterine reflection was made with Metzenbaum scissors and transverse hysterotomy performed near the midline. Amniotomy revealed lightly meconium stained fluid. The incision was extended bilaterally with digital traction and the was delivered without difficulty from the vertex presentation. The infant was not vigorous and cord clamping was therefore performed shortly after delivery and cord blood gases obtained. The placenta was delivered intact using gentle cord traction and fundal massage.The uterine cavity was then cleared of any clot/debris first with a sloppy wet lap tape followed by a dry lap tape. Long ring forceps were used to open the cervix. Short ring forceps were then applied to the angles and the midline of the incised MERCEDEZ. A primary closure of the uterus was then accomplished with #1 CCGS in a running interlocking stitch followed by a 2nd layer of #1 CCGS in a running interlocking imbricating stitch. An ascending uterine artery suture was required on the left side to render the left angle completely hemostatic. Once pelvic hemostasis was assured, the bladder flap and anterior peritoneum were closed with a running 2-0 Vicryl suture and the fascia closed with #1 Vicryl in a running stitch initiated at both angles and tying separately near the midline. The subcutaneous tissues were reapproximated with 2-0 plain catgut suture using inverted interrupted stitches. The skin edges were then brought together with 4-0 Monocryl in a subcuticular closure and the incision was reinforced with 1 Steri-Strips. An appropriate compression dressing was applied and the patient transferred to PACU for recovery and subsequent transfer to the Center for recuperation. Complications: none Baby 1: Infant Gender: Male Presentation: vertex Position: Left Occiput Anterior Placental Delivery Description: Spontaneous and Expressed Cord Vessel Description: 3 Vessels score (1 min): 4 score (5 min): 7 score (10 min): 9 weight: 8 lb 3.995 oz Post-operative Condition: stable Disposition: PACU Aftercare: routine postop
[2021-11-17] MEDS: ONDANSETRON 8 MG in SODIUM CHLORIDE 0.9% 100 ML 208 MG IV (19:49)
[2021-11-18] MEDS: KETOROLAC 30 MG/ML VIAL IV ×2 (04:40→10:29)
[2021-11-18] MEDS: ONDANSETRON 4 MG/2 ML INJ IV (09:16)
[2021-11-18] MEDS: ENOXAPARIN 40 MG/0.4 ML SYRINGE SUBCUT (09:16)
[2021-11-18] MEDS: ACETAMINOPHEN 325 MG TABLET 650 MG PO ×3 (09:49→22:13)
[2021-11-18] MEDS: DOCUSATE 100 MG CAPSULE 200 MG PO ×2 (09:49→22:13)
[2021-11-18 10:06] LABS: Add Manual Diff / Slide Review NO; Basophils Absolute Auto 0 /uL (0-100); Basophils Percent Auto 0.1 % (0-2); Eosinophils Absolute Auto 100 /uL (0-450); Eosinophils Percent Auto 0.3 % (2-4); Hematocrit 34.6 % (36-46); Hemoglobin 11.7 g/dL (12.0-16.0); Lymphocytes Absolute Auto 2200 /uL (1100-4500); Lymphocytes Percent Auto 13.1 % (25-40); Mean Corpuscular HGB Conc 33.8 % (30-36); Mean Corpuscular Hemoglobin 30.8 PG (26-34); Mean Corpuscular Volume 91.2 fL (80-100); Monocytes Absolute Auto 1200 /uL (0-900); Monocytes Percent Auto 7.2 % (3-14); Neutrophils Absolute Auto 13200 /uL (1500-7000); Neutrophils Percent Auto 79.3 % (50-75); Platelet Count 246 X10^3/uL (150-400); Red Cell Distribution Width 14.9 % (11.6-14.8); White Blood Cell Count 16.6 X10^3/uL (4.5-11.0)
[2021-11-18 10:15] LABS: Alanine Aminotransferase 240 IU/L (<35); Albumin 2.7 g/dL (3.5-5.0); Albumin Globulin Ratio 0.9 (1.0-2.8); Alkaline Phosphatase 176 U/L (38-126); Aspartate Aminotransferase 183 IU/L (14-36); Bilirubin Total 0.5 mg/dL (0.2-1.3); Bilirubin Unconjugated 0.6 mg/dL (0.0-1.1); Globulin 3.1 g/dL (1.7-4.1); HEMOLYSIS < 15 (0-50); Total Protein 5.8 g/dL (6.3-8.2)
--- NOTE | 2021-11-18 10:47 | P.PNOB_ITS ---
Subjective - OB Subjective Patient comments: no complaints [place] baby status: other (Respiratory issues improved, blood sugar issues persist) [place] feeding status: other (Pumping and tube feeding) Narrative: Taty has done reasonably well postop with some diminished output overnight which responded to a fluid bolus. Her baby's respiratory issues noted are markedly improved but maintaining normal blood sugar levels has been p roblematic. Her baby had a feeding tube placed because oral intake was inadequate but the tube came out and blood sugar levels will be evaluated later this morning with the decision to be made at that time regarding possible transfer of the infant for NICU care. She is tolerating regular diet, amb ulating independently, and she has started to pass gas. Her pain is well relieved with oral medication and IV Toradol. Lochia is minimal. Date Patient Seen: 11/18/21 Time Patient Seen: 10:05 Exam Vital Signs (past 8 hours): Oxygen Delivery Method Room Air 11/18/2021: BP 122/70, P 80, R 16, T 98.0F Const General: cooperative and comfortable Nutritional Appearance: average body habitus Orientation: alert and oriented x3 HENMT Head: normal to inspection, atraumatic and abrasion Ears: hearing grossly normal bilaterally Face and sinus: face symmetric Eyes General: appearance normal, both eyes and all related structures Conjunctivae: conjunctivae normal Sclera: sclerae normal EOM: EOM intact bilaterally Neck Neck: normal visual inspection Resp Effort & Inspection: normal respiratory effort and able to speak in complete sentences Auscultation: clear to auscultation bilaterally Cardio Rate: regular rate Rhythm: regular rhythm Heart Sounds: S1 normal, S2 normal and no murmurs GI Inspection: normal to inspection and incision (Surgical dressing clean and dry) Palpation: soft, no hepatosplenomegaly, mass (Firm, mildly tender fundus, U -4) and tender (Mild, diffuse postsurgical tenderness) External Female Exam: other (No significant bleeding noted) Extrem General: no calf tenderness Right lower extremity: edema Details: pitting and 1+ Left lower extremity: edema Details: pitting and 1+ Psych Appearance: grossly normal Mental Status: mental status grossly normal Speech and Movement: speech and movement normal Mood: congruent mood Affect: normal affect Attitude: cooperative Thought Process: normal Thought Content: normal Judgment: judgment good Objective Labs Result Diagrams: 11/18/21 07:26 Labs: Laboratory Results - last 24 hr 11/18/21 11/18/21 07:26 07:26 WBC 16.6 H RBC 3.80 L Hgb 11.7 L Hct 34.6 L MCV 91.2 MCH 30.8 MCHC 33.8 RDW 14.9 H Plt Count 246 Neut % (Auto) 79.3 H Lymph % (Auto) 13.1 L [place] % (Auto) 7.2 Eos % (Auto) 0.3 L Baso % (Auto) 0.1 Neut # (Auto) 88023 H Lymph # (Auto) 2200 [place] # (Auto) 1200 H Eos # (Auto) 100 Baso # (Auto) 0 Total Bilirubin 0.5 Conjugated Bilirubin 0.0 Unconjugated Bilirubin 0.6 AST 183 H ALT 240 H Alkaline Phosphatase 176 H Total Protein 5.8 L Albumin 2.7 L Globulin 3.1 Albumin/Globulin Ratio 0.9 L Assessment & Plan Assessment and Plan (1) Family history of thrombosis in first degree relative: Status: Acute (2) Pre-eclampsia, severe, delivered: Status: Acute (3) Elevation of levels of liver transaminase levels: Status: Acute Plan day: 1 plan OB: routine postop care Comments: Will repeat LFTs in the a.m. with discharge anticipated discharge if LFT levels continue to fall, her blood pressures remain normal, and she meets all other dis charge criteria. Time Spent With Patient Time: Total time spent is greater than 50% in coordination of care (as documented) at patient's floor/unit and/or counseling patient: Time with patient: 15-24 minutes
[2021-11-18] MEDS: OXYCODONE IR 5 MG TABLET PO ×3 (12:43→22:14)
[2021-11-18] MEDS: IBUPROFEN 600 MG TABLET PO ×2 (16:01→22:13)
[2021-11-19] MEDS: OXYCODONE IR 5 MG TABLET PO ×4 (02:16→16:41)
[2021-11-19] MEDS: ACETAMINOPHEN 325 MG TABLET 650 MG PO ×3 (03:59→16:41)
[2021-11-19] MEDS: IBUPROFEN 600 MG TABLET PO ×3 (03:59→16:41)
[2021-11-19 08:09] LABS: Alanine Aminotransferase 205 IU/L (<35); Albumin 2.6 g/dL (3.5-5.0); Albumin Globulin Ratio 0.8 (1.0-2.8); Alkaline Phosphatase 150 U/L (38-126); Aspartate Aminotransferase 134 IU/L (14-36); Bilirubin Total 0.3 mg/dL (0.2-1.3); Bilirubin Unconjugated 0.3 mg/dL (0.0-1.1); Globulin 3.2 g/dL (1.7-4.1); HEMOLYSIS < 15 (0-50); Total Protein 5.8 g/dL (6.3-8.2)
[2021-11-19] MEDS: DOCUSATE 100 MG CAPSULE 200 MG PO (08:32)
[2021-11-19] MEDS: ENOXAPARIN 40 MG/0.4 ML SYRINGE SUBCUT (09:04)
--- NOTE | 2021-11-19 10:10 | PM.OBDS.1 ---
Discharge Providers Provider Date of admission: 11/15/21 18:01 Discharge Date: 11/19/21 Primary care physician: Stacy Brock MD Consults: 11/15/21 18:21 Consult to Anesthesiology Urgent Comment: Consulting Provider: Christopher Flores Reason for consultation: JAYCE placement in labor Has provider been notified: No 11/17/21 15:06 Consult to Quilt Maker Routine Comment: Discharge provider: Christopher Flores MD Summary Hospital Course Date Patient Seen: 11/19/21 Time Patient Seen: 10:05 Diagnoses: Intrauterine gestation, 37+ 5 weeks' gestational age, delivered by section Preeclampsia with severe features (elevated liver function studies) intolerance of labor Family history of thrombophilia, first-degree relative Hospital Course: Taty was admitted for cervical ripening on the evening of 11/15/2021 after lab studies performed due to mild BP elevations revealed significant transaminase elevations. Cervical ripening with both oral and intravaginal prostaglandins resulted in little cervical change and on the morning of 11/17/2021 her infant began showing signs of intolerance of labor with markedly diminished variability and intermittent late decelerations with the cervix remaining closed and the vertex at -2 station despite 36 hours of cervical ripening. She underwent an uneventful primary section later on the morning of 11/17/2021, the details of which are well summarized my the operative note of that date. Following surgery the patient has done extremely well with prompt return of bowel and bladder function, she is ambulating independently, tolerating regular diet, and her pain is well relieved with oral pain medications. Due to her first-degree family history of thrombophilia, the patient was initiated on subQ Lovenox 40 mg daily which she will continue for 10 days following discharge. Her liver studies drawn on the morning following delivery and the morning of discharge so steady decline toward the normal range. She will be discharged at this time in an afebrile normotensive condition home after counseling regarding precautionary symptoms, limitations of activity, medications, plans for follow-up. Medications at discharge will include all of her preadmission medications, Lovenox 40 mg subQ q.d. times 10 days, oxycodone 5 mg tabs 1 p.o. q.6 hours as needed pain dispense 20 with no refills, Colace 200 mg p.o. b.i.d. times 14 days, and ibuprofen 600 mg p.o. q.6 hours #60. Her follow-up for an incision check will be in 1 week at which time she'll also have a follow-up liver panel drawn. Peripartum Data Infant Delivery Method: Section Laceration Description: None Episiotomy description: None complications: none [place] 1: Gender: Male Disposition of : home Discharge Diagnosis (1) Family history of thrombosis in first degree relative: Status: Acute (2) Pre-eclampsia, severe, delivered: Status: Acute (3) Elevation of levels of liver transaminase levels: Status: Acute (4) delivery, delivered, current hospitalization: Status: Acute Status at Discharge Functional status at discharge: independent ambulation Overall status at discharge: patient is progressing back to baseline Time Spent with Patient Time attestation: Total time spent providing and/or coordinating discharge services: Time spent: Less than 30 minutes Objective Labs Result Diagrams: 11/18/21 07:26 Labs: Laboratory Results - last 24 hr 11/18/21 11/18/21 11/19/21 07:26 07:26 07:30 WBC 16.6 H RBC 3.80 L Hgb 11.7 L Hct 34.6 L MCV 91.2 MCH 30.8 MCHC 33.8 RDW 14.9 H Plt Count 246 Neut % (Auto) 79.3 H Lymph % (Auto) 13.1 L [place] % (Auto) 7.2 Eos % (Auto) 0.3 L Baso % (Auto) 0.1 Neut # (Auto) 56543 H Lymph # (Auto) 2200 [place] # (Auto) 1200 H Eos # (Auto) 100 Baso # (Auto) 0 Total Bilirubin 0.5 0.3 Conjugated Bilirubin 0.0 0.0 Unconjugated Bilirubin 0.6 0.3 AST 183 H 134 H ALT 240 H 205 H Alkaline Phosphatase 176 H 150 H Total Protein 5.8 L 5.8 L Albumin 2.7 L 2.6 L Globulin 3.1 3.2 Albumin/Globulin Ratio 0.9 L 0.8 L Exam Vital Signs (past 8 hours): Oxygen Delivery Method Room Air Const General: cooperative and comfortable Nutritional Appearance: average body habitus Orientation: alert and oriented x3 HENMT Head: normal to inspection, atraumatic and abrasion Ears: hearing grossly normal bilaterally Face and sinus: face symmetric Eyes General: appearance normal, both eyes and all related structures Conjunctivae: conjunctivae normal Sclera: sclerae normal EOM: EOM intact bilaterally Neck Neck: normal visual inspection Resp Effort & Inspection: normal respiratory effort and able to speak in complete sentences Auscultation: clear to auscultation bilaterally Cardio Rate: regular rate Rhythm: regular rhythm Heart Sounds: S1 normal, S2 normal and no murmurs GI Inspection: normal to inspection and incision (Wound clean and dry, AquaCel dressing applied) Palpation: soft, no hepatosplenomegaly and tender (Mild, diffuse postsurgical tenderness) Auscultation: normal bowel sounds External Female Exam: other (No significant bleeding noted) Extrem General: no calf tenderness Right lower extremity: edema Details: 1+ Left lower extremity: edema Details: 1+ Psych Appearance: grossly normal Mental Status: mental status grossly normal Speech and Movement: speech and movement normal Mood: congruent mood Affect: normal affect Attitude: cooperative Thought Process: normal Thought Content: normal Judgment: judgment good Discharge Plan Discharge Plan Patient Disposition: Home Provider Discharge Comment: Please review the written information you received when you were discharged from the hospital. Your follow-up for a 1 week post surgery incision check will need to be scheduled with Dr. Pendleton in my absence. In the meanwhile, if you have any questions, concerns, or problems, please contact the office at [phone]. Discharge orders & Medications Prescriptions: New docusate sodium 100 mg Capsule 200 mg PO BID 14 Days Qty: 60 0RF ibuprofen 600 mg Tablet 600 mg PO Q6H PRN (Reason: Fever/Mild Pain (1-3)) Qty: 60 2RF oxycodone 5 mg Tablet 5 mg PO Q6H PRN (Reason: Pain, Moderate (4-6)) Qty: 20 0RF enoxaparin [Lovenox] 40 mg/0.4 mL Syringe 40 mg SUBCUT DAILY 10 Days Qty: 10 0RF Continued PNV #[id number] acid-dha 35 mg iron-5 mg iron-1 mg capsule 1 cap PO DAILY cholecalciferol (vitamin D3) 125 mcg (5,000 unit) capsule 125 mcg PO DAILY Unisom (doxylamine) 25 mg tablet 25 mg PO BEDTIME PRN (Reason: Sleep) pyridoxine (vitamin B6) 100 mg tablet 50 mg PO DAILY cetirizine [Zyrtec] 10 mg tablet 10 mg PO DAILY PRN (Reason: Allergy Symptoms) epinephrine [EpiPen 2-Matt] 0.3 mg/0.3 mL auto-injector 0.3 mg IM Q4H PRN (Reason: Allergic Reaction) Follow up/Referrals: Stacy Brock MD [Primary Care Provider] - Christopher Flores MD [Physician] - Discharge Health Status Multidrug resistant organism: No MDRO Diet/Activity/Treatments Diet: Diet as Tolerated Activity: As tolerated Other treatments: [id number] Tylenol be also be used for pain relief. Skin/Wound/Dressing Care Report to your healthcare provider any signs of infection, such as:: chills, fever, increased pain, unusual drainage and unusual redness Dressing: Your dressing will be removed at the time of your one-week postop visit Visit Report/Discharge Packet Instructions: DI for , DI for and Nipple Soreness, DI for Prescription Opioid Use Discharge Data Primary Care Provider: Stacy Brock
[2021-11-19 13:56] VITALS: BP 130/78; PULSE 70; RESP 15; TEMP 37
== END 2021-11-19 18:50 | disposition home or self-care (01) | DRG 788 ==
PROVIDERS: Admitting Provider Obstetrics & Gynecology; PCP Internal Medicine; Referring Provider Obstetrics & Gynecology; Visit Provider Obstetrics & Gynecology
PROC: 10D00Z1 Extraction of Products of Conception, Low, Open Approach (ICD-10-PCS; CPT 59514; principal; 2021-11-17 11:30)
DX: O14.14 Severe pre-eclampsia complicating childbirth (principal); O76 Abnormality in fetal heart rate and rhythm complicating labor and delivery; Z3A.37 37 weeks gestation of pregnancy; Z37.0 Single live birth; O99.824 Streptococcus B carrier state complicating childbirth; O99.892 Other specified diseases and conditions complicating childbirth; R74.01 Elevation of levels of liver transaminase levels; Z83.2 Family history of diseases of the blood and blood-forming organs and certain disorders involving the immune mechanism; Z20.822 Contact with and (suspected) exposure to COVID-19; O26.893 Other specified pregnancy related conditions, third trimester; R03.0 Elevated blood-pressure reading, without diagnosis of hypertension
CPT/HCPCS: 36415; 59050; 59200; 59510; 59514; 80053; 80076; 82570; 84156; 84550; 85025; 86850; 86900; 86901; 87635; C9803; G0378; G0379; J0690; J1650; J1885; J2274; J2405; J2590; J3010

== ENCOUNTER → 2021-11-24 16:15 | Outpatient (CLI) | payer OTHER, BC, SELFPAY ==
[2021-11-24 18:53] LABS: Alanine Aminotransferase 88 IU/L (<35); Albumin 3.4 g/dL (3.5-5.0); Alkaline Phosphatase 147 U/L (38-126); Aspartate Aminotransferase 47 IU/L (14-36); Bilirubin Total 0.3 mg/dL (0.2-1.3); Bilirubin Unconjugated 0.3 mg/dL (0.0-1.1); Globulin 3.3 g/dL (1.7-4.1); HEMOLYSIS < 15 (0-50); Total Protein 6.7 g/dL (6.3-8.2)
== END ==
PROVIDERS: PCP Internal Medicine; Referring Provider Obstetrics & Gynecology; Visit Provider Obstetrics & Gynecology
DX: O14.14 Severe pre-eclampsia complicating childbirth (principal); R74.01 Elevation of levels of liver transaminase levels
CPT/HCPCS: 36415; 80076

== ENCOUNTER → 2021-12-28 09:38 | Outpatient (CLI) | payer OTHER, BC, SELFPAY ==
[2021-12-28 10:44] LABS: Alanine Aminotransferase 23 IU/L (<35); Albumin 4.2 g/dL (3.5-5.0); Albumin Globulin Ratio 1.2 (1.0-2.8); Alkaline Phosphatase 142 U/L (38-126); Aspartate Aminotransferase 24 IU/L (14-36); Bilirubin Total 0.5 mg/dL (0.2-1.3); Bilirubin Unconjugated 0.5 mg/dL (0.0-1.1); Globulin 3.4 g/dL (1.7-4.1); HEMOLYSIS < 15 (0-50); Total Protein 7.6 g/dL (6.3-8.2)
== END ==
PROVIDERS: PCP Internal Medicine; Referring Provider Obstetrics & Gynecology; Visit Provider Obstetrics & Gynecology
DX: O14.14 Severe pre-eclampsia complicating childbirth (principal); R74.01 Elevation of levels of liver transaminase levels
CPT/HCPCS: 36415; 80076

== ENCOUNTER → 2023-10-07 16:39 | Outpatient (CLI) | payer OTHER, BC, SELFPAY ==
--- NOTE | 2023-10-07 16:40 | DI.US.S_ITS ---
PROCEDURE: US PELVIC COMPLETE INDICATIONS: irregular cycles TECHNIQUE: Real-time scanning was performed of the pelvic organs, with image documentation. Additional endovaginal scanning was necessary due to incomplete visualization of the adnexal and endometrial structures by transabdominal scanning. COMPARISON: None. FINDINGS: Uterus: Uterus is retroverted and normal in size at 9.0 x 3.7 x 5.4 cm. The myometrium is homogeneous. The endometrium measures 8.5 mm combined thickness. Ovaries: The right ovary measures 2.9 x 1.9 x 2.8 cm, with a calculated ovarian volume of 8 cc. The left ovary measures 3.2 x 2.5 x 2.9 cm, with a calculated ovarian volume of 12 cc. The ovaries have a normal sonographic appearance. Greater than 12 follicles can be seen in each ovary. No adnexal masses are seen. Other: No pathologic free abdominal or pelvic fluid. IMPRESSION: Greater than 12 follicles per ovary, which can be seen in the clinical setting of PCOS. We strive to produce accurate, complete, and clear reports of imaging services. To assist us in improving patient care, this report was composed using standard report templates and voice recognition software. Therefore, it may contain abnormal punctuation, insertions and/or omissions. Occasional wrong-word or sound-alike substitutions may occur. Though we review the report and make efforts to correct it, we do recommend that the report be read carefully in proper context to recognize any text inaccuracies. Dictated by: Alex Pizarro M.D. on 10/08/2023 at 10:46 Approved by: Alex Pizarro M.D. on 10/08/2023 at 10:49
== END ==
LOC: US 16:40
PROVIDERS: PCP Internal Medicine; Referring Provider Obstetrics & Gynecology; Visit Provider Obstetrics & Gynecology
DX: N92.6 Irregular menstruation, unspecified (principal)
CPT/HCPCS: 76856

== ENCOUNTER → 2024-01-02 14:54 | Outpatient (CLI) | payer OTHER, BC, SELFPAY ==
[2024-01-02 16:13] LABS: HCG Quantitative /Beta subunit 43.49 mIU/mL
== END ==
LOC: LAB 14:57
PROVIDERS: PCP Internal Medicine; Referring Provider Obstetrics & Gynecology; Visit Provider Obstetrics & Gynecology
DX: N92.6 Irregular menstruation, unspecified (principal); N97.0 Female infertility associated with anovulation
CPT/HCPCS: 36415; 84144; 84702

== ENCOUNTER → 2024-01-27 16:29 | Outpatient (CLI) | payer OTHER, BC, SELFPAY ==
--- NOTE | 2024-01-27 16:30 | DI.US.S_ITS ---
PROCEDURE: US OB <= 14 WEEKS FETUS INDICATIONS: dating and viability OUTSIDE/PRIOR DATING DATA: Last menstrual period (LMP): 12/04/2023. LMP-based estimated date of delivery (SUKHWINDER): 09/09/2024. First dating scan (date and location): 01/27/2024. Estimated date of delivery (SUKHWINDER) from first dating scan: 09/12/2024. TECHNIQUE: Real-time scanning was performed of the fetus and maternal pelvic organs, with image documentation. Endovaginal scanning was also performed to better visualize the fetus and maternal ovaries. COMPARISON: [facility], OB <= 14 WEEKS FETUS, 05/08/2021, 8:24. FINDINGS: Embryo: pole with crown-rump length measuring 1.1 centimeters, consistent with 7 weeks and 2 days. Heart rate: 153 beats per minute Maternal organs: Ovaries are within normal limits.. IMPRESSION: Single live intrauterine consistent with 7 weeks and 2 days. We strive to produce accurate, complete, and clear reports of imaging services. To assist us in improving patient care, this report was composed using standard report templates and voice recognition software. Therefore, it may contain abnormal punctuation, insertions and/or omissions. Occasional wrong-word or sound-alike substitutions may occur. Though we review the report and make efforts to correct it, we do recommend that the report be read carefully in proper context to recognize any text inaccuracies. Dictated by: Mathew Dick M.D. on 01/28/2024 at 9:40 Approved by: Mathew Dick M.D. on 01/28/2024 at 9:41
== END ==
PROVIDERS: PCP Internal Medicine; Referring Provider Obstetrics & Gynecology; Visit Provider Obstetrics & Gynecology
DX: Z34.81 Encounter for supervision of other normal pregnancy, first trimester (principal); Z3A.01 Less than 8 weeks gestation of pregnancy
CPT/HCPCS: 76801

== ENCOUNTER → 2024-03-06 08:09 | Outpatient (CLI) | payer OTHER, BC, SELFPAY ==
[2024-03-06 14:41] LABS: Urine N gonorrhoeae NOT DETECTED
[2024-03-06 15:03] LABS: Urine Chlamydia NOT DETECTED
== END ==
PROVIDERS: PCP Internal Medicine; Visit Provider Obstetrics & Gynecology
DX: Z11.3 Encounter for screening for infections with a predominantly sexual mode of transmission (principal)
CPT/HCPCS: 87491; 87591

== ENCOUNTER → 2024-03-06 08:32 | Outpatient (CLI) | payer OTHER, BC, SELFPAY ==
[2024-03-06 09:03] LABS: Add Manual Diff / Slide Review NO; Basophils Absolute Auto 0 /uL (0-100); Basophils Percent Auto 0.3 % (0-2); Eosinophils Absolute Auto 100 /uL (0-450); Hematocrit 38.5 % (36-46); Hemoglobin 13.3 g/dL (12.0-16.0); Lymphocytes Absolute Auto 2300 /uL (1100-4500); Mean Corpuscular HGB Conc 34.7 % (30-36); Mean Corpuscular Hemoglobin 31.1 PG (26-34); Mean Corpuscular Volume 89.7 fL (80-100); Monocytes Absolute Auto 400 /uL (0-900); Monocytes Percent Auto 4.3 % (3-14); Neutrophils Absolute Auto 7100 /uL (1500-7000); Neutrophils Percent Auto 71.4 % (50-75); Platelet Count 251 X10^3/uL (150-400); Red Blood Cell Count 4.29 X10^6/uL (4.0-5.2); Red Cell Distribution Width 13.5 % (11.6-14.8)
[2024-03-06 09:13] LABS: Hemoglobin A1C% w Est Avg Glu 4.8 % (4.0-6.0)
[2024-03-06 09:26] LABS: Alanine Aminotransferase 20 IU/L (<35); Aspartate Aminotransferase 24 IU/L (14-36); BUN Creatinine Ratio 20.4 (6-22); Blood Urea Nitrogen 10 mg/dL (7-17); Estimated Glomerular Filt Rate > 60 mL/min (>60); Uric Acid 3.4 mg/dL (2.5-6.2)
[2024-03-06 09:44] LABS: Natera Collection Specimen Collected
[2024-03-06 09:53] LABS: Rubella Antibody IgG 15.6 IU/mL (>15)
[2024-03-06 09:58] LABS: Hepatitis B Surface Antigen NEGATIVE s/c (NEGATIVE)
[2024-03-06 10:14] LABS: HIV 1 & 2 Ab/Ag 4th Gen Combo NEGATIVE (NEGATIVE); Hep C Virus Ab w/Reflex Quant NEGATIVE s/c (NEGATIVE)
[2024-03-07 08:39] LABS: RPR Screen Non Reactive (Non Reactive)
[2024-03-07 09:36] LABS: Varicella IgG Antibody Non Reactive (Non Reactive)
== END ==
PROVIDERS: PCP Internal Medicine; Referring Provider Obstetrics & Gynecology; Visit Provider Obstetrics & Gynecology
DX: Z34.81 Encounter for supervision of other normal pregnancy, first trimester (principal); Z36.0 Encounter for antenatal screening for chromosomal anomalies; Z11.3 Encounter for screening for infections with a predominantly sexual mode of transmission
CPT/HCPCS: 36415; 80055; 82565; 83036; 84450; 84460; 84520; 84550; 86787; 86803; 86850; 86900; 86901; 87086; 87389; 87491; 87591

== ENCOUNTER → 2024-04-03 15:10 | Outpatient (CLI) | payer OTHER, BC, SELFPAY ==
[2024-04-07 20:40] LABS: AFP Value 31.4 ng/mL (.); Gest Age on Col Date 15.4 weeks (.); Gestational Age EDD (.); Insulin Dep Diabetes No (.); OSBR Risk 1IN 5096 (.); Results Report (.); Test Results *Screen Negative* (.)
== END ==
PROVIDERS: PCP Internal Medicine; Referring Provider Obstetrics & Gynecology; Visit Provider Obstetrics & Gynecology
DX: Z34.82 Encounter for supervision of other normal pregnancy, second trimester (principal); Z3A.16 16 weeks gestation of pregnancy
CPT/HCPCS: 36415; 82105

== ENCOUNTER → 2024-05-01 11:03 | Outpatient (CLI) | payer OTHER, BC, SELFPAY ==
--- NOTE | 2024-05-01 11:04 | DI.US.S_ITS ---
PROCEDURE: US OB >= 14 WEEKS FETUS INDICATIONS: anatomy scan OUTSIDE/PRIOR DATING DATA: Last menstrual period (LMP): 12/04/2023. LMP-based estimated date of delivery (SUKHWINDER): 09/09/2024. First dating scan (date and location): 01/27/2024. Estimated date of delivery (SUKHWINDER) from first dating scan: 09/12/2024. The calculations are made using the ultrasound SUKHWINDER of 09/12/2024. TECHNIQUE: Real-time scanning was performed of the fetus, with image documentation and biometric measurements. Endovaginal scanning: Not performed COMPARISON: [facility], , OB >= 14 WEEKS FETUS, 07/17/2021, 9:14. FINDINGS: General: A single living intrauterine gestation is present. Presentation: Vertex. Placenta: Placental position is posterior , without previa. Amniotic fluid index: 13.4 cm, normal range is 5-24 cm. Single deepest vertical pocket is 4.5 cm. heart rate: 149 beats per minute. Maternal cervical canal: 3.9 cm long. Normal lower limit is 2.5 cm. biometrics: Biparietal diameter: 4.8 cm, 20 weeks 3 days Head circumference: 17.9 cm, 20 weeks 2 days Abdominal circumference: 15.5 cm, 20 weeks 5 days Femur length: 3.5 cm, 21 weeks 1 day Clinically estimated gestational age: 20 weeks 6 days Composite gestational age from present scan: 20 weeks 5 days Estimated weight and percentile: 380 g, 43rd percentile Anatomic survey: Neuro: Ventricles are non-dilated at less than 10 mm. Cisterna magna is normal at 3-11 mm. Cerebellum is normal in size and morphology. Nuchal skin fold: Normal at less than 6 mm between 14-21 weeks gestational age. Face: Nose and lips, facial profile are normal. Spine: No evidence for spina bifida. Heart: 4-chambered heart is present, with normal ventricular outflow tracts. Diaphragm: Diaphragm is intact. Stomach: Left-sided stomach is present. Kidneys: No hydronephrosis. Normal is less than 5 mm in 2nd trimester, less than 7 mm in 3rd trimester. Cord: 3-vessel cord has orthotopic insertion. Bladder: Normal in size. Extremities: All 4 extremities identified. IMPRESSION: Single living intrauterine at 20 weeks 6 days, SUKHWINDER of 09/12/2024. Estimated weight of 380 g, 43 percentile. Normal anatomy survey. We strive to produce accurate, complete, and clear reports of imaging services. To assist us in improving patient care, this report was composed using standard report templates and voice recognition software. Therefore, it may contain abnormal punctuation, insertions and/or omissions. Occasional wrong-word or sound-alike substitutions may occur. Though we review the report and make efforts to correct it, we do recommend that the report be read carefully in proper context to recognize any text inaccuracies. Dictated by: Alex Pizarro M.D. on 05/01/2024 at 14:22 Approved by: Alex Pizarro M.D. on 05/01/2024 at 14:25
== END ==
PROVIDERS: PCP Internal Medicine; Referring Provider Obstetrics & Gynecology; Visit Provider Obstetrics & Gynecology
DX: Z34.82 Encounter for supervision of other normal pregnancy, second trimester (principal); Z3A.20 20 weeks gestation of pregnancy
CPT/HCPCS: 76811; 81001; 87086

== ENCOUNTER → 2024-05-01 14:01 | Outpatient (CLI) | payer OTHER, BC, SELFPAY ==
[2024-05-01 18:39] LABS: Bilirubin Urine UA NEGATIVE (NEGATIVE); Color Urine UA YELLOW; Glucose Urine UA NEGATIVE (Negative); Ketones Urine UA NEGATIVE (NEGATIVE); Leukocyte Esterase Urine UA 3+ (NEGATIVE); Nitrite Urine UA NEGATIVE (Negative); Occult Blood Urine UA TRACE-INTACT (Negative); Protein Urine UA NEGATIVE (Negative); Specific Gravity Urine UA 1.015 (1.000-1.035); Urobilinogen Urine UA 0.2 E.U./dL (0.2)
[2024-05-01 18:44] LABS: Appearance Urine UA CLOUDY
[2024-05-01 18:45] LABS: Urine Volume 10mL (spun)
[2024-05-01 18:46] LABS: Bacteria Urine Many (>30); RBC Urine 0-1/HPF (0-5/HPF); WBC Urine 30-100/HPF (0-5/HPF)
[2024-05-01 18:47] LABS: Culture Indicated Urine Specimen Cultured; Squamous Epithelial Cell Urine >30 /HPF (0-5/HPF)
== END ==
PROVIDERS: PCP Internal Medicine; Visit Provider Obstetrics & Gynecology
DX: R82.998 Other abnormal findings in urine (principal)
CPT/HCPCS: 81001; 87086

== ENCOUNTER → 2024-05-07 15:07 | Outpatient (CLI) | payer OTHER, BC, SELFPAY ==
[2024-05-07 15:58] LABS: Appearance Urine UA CLEAR; Bilirubin Urine UA NEGATIVE (NEGATIVE); Color Urine UA YELLOW; Glucose Urine UA NEGATIVE (Negative); Ketones Urine UA 1+ (NEGATIVE); Leukocyte Esterase Urine UA 2+ (NEGATIVE); Nitrite Urine UA NEGATIVE (Negative); Occult Blood Urine UA 1+ (Negative); Protein Urine UA NEGATIVE (Negative); Urobilinogen Urine UA 0.2 E.U./dL (0.2)
[2024-05-07 16:16] LABS: Bacteria Urine Few (2-10); Culture Indicated Urine Specimen Cultured; RBC Urine None Seen (0-5/HPF); Squamous Epithelial Cell Urine 1-5 /HPF (0-5/HPF); Urine Volume 10mL (spun); WBC Urine 1-5/HPF (0-5/HPF)
== END ==
PROVIDERS: PCP Internal Medicine; Referring Provider Obstetrics & Gynecology; Visit Provider Obstetrics & Gynecology
DX: R39.89 Other symptoms and signs involving the genitourinary system (principal)
CPT/HCPCS: 81001; 87086

== ENCOUNTER → 2024-05-14 08:13 | Outpatient (CLI) | payer OTHER, BC, SELFPAY ==
[2024-05-14 08:32] LABS: Appearance Urine UA CLEAR; Bilirubin Urine UA NEGATIVE (NEGATIVE); Color Urine UA YELLOW; Glucose Urine UA NEGATIVE (Negative); Ketones Urine UA NEGATIVE (NEGATIVE); Leukocyte Esterase Urine UA TRACE (NEGATIVE); Nitrite Urine UA NEGATIVE (Negative); Occult Blood Urine UA 1+ (Negative); Protein Urine UA NEGATIVE (Negative); Urobilinogen Urine UA 0.2 E.U./dL (0.2)
[2024-05-14 08:41] LABS: Bacteria Urine None Seen; RBC Urine 1-5/HPF (0-5/HPF); Squamous Epithelial Cell Urine 1-5 /HPF (0-5/HPF); Urine Volume 10mL (spun); WBC Urine 1-5/HPF (0-5/HPF)
[2024-05-14 08:42] LABS: Culture Indicated Urine Cult Not Indicated
== END ==
PROVIDERS: PCP Internal Medicine; Referring Provider Obstetrics & Gynecology; Visit Provider Obstetrics & Gynecology
DX: R30.0 Dysuria (principal)
CPT/HCPCS: 81001

== ENCOUNTER → 2024-05-22 11:21 | Outpatient (CLI) | payer OTHER, BC, SELFPAY | PROVIDERS: PCP Internal Medicine; Visit Provider Obstetrics & Gynecology | DX: R82.998 Other abnormal findings in urine (principal) | CPT/HCPCS: 87086 ==

== ENCOUNTER → 2024-06-05 08:14 | Outpatient (CLI) | payer OTHER, BC, SELFPAY ==
[2024-06-05 09:52] LABS: Hematocrit 36.5 % (36-46); Hemoglobin 12.8 g/dL (12.0-16.0)
[2024-06-05 10:15] LABS: GTT (PREG) 1 Hour PP 50gm Dose 106 mg/dL (76-139)
== END ==
PROVIDERS: PCP Internal Medicine; Referring Provider Obstetrics & Gynecology; Visit Provider Obstetrics & Gynecology
DX: Z34.92 Encounter for supervision of normal pregnancy, unspecified, second trimester (principal); Z34.80 Encounter for supervision of other normal pregnancy, unspecified trimester; R10.9 Unspecified abdominal pain; N39.0 Urinary tract infection, site not specified
CPT/HCPCS: 36415; 82950; 85014; 85018; 87086

== ENCOUNTER → 2024-07-10 14:31 | Outpatient (CLI) | payer OTHER, BC, SELFPAY | PROVIDERS: PCP Internal Medicine; Visit Provider Obstetrics & Gynecology | DX: R82.998 Other abnormal findings in urine (principal) | CPT/HCPCS: 87086 ==

== ENCOUNTER → 2024-07-22 12:02 | Outpatient (CLI) | payer OTHER, BC, SELFPAY | LOC: LAB 12:05 | PROVIDERS: PCP Internal Medicine; Visit Provider Obstetrics & Gynecology | DX: Z34.82 Encounter for supervision of other normal pregnancy, second trimester (principal); Z3A.32 32 weeks gestation of pregnancy | CPT/HCPCS: 87086 ==

== ENCOUNTER → 2024-08-05 14:11 | Outpatient (CLI) | payer OTHER, BC, SELFPAY | PROVIDERS: PCP Internal Medicine; Visit Provider Obstetrics & Gynecology | DX: Z34.80 Encounter for supervision of other normal pregnancy, unspecified trimester (principal) | CPT/HCPCS: 87086 ==

== ENCOUNTER → 2024-08-19 10:38 | Outpatient (CLI) | payer OTHER, BC, SELFPAY ==
[2024-08-20 13:52] LABS: Strep Grp B PCR NEG for Grp B Strep
== END ==
PROVIDERS: PCP Internal Medicine; Visit Provider Obstetrics & Gynecology
DX: Z34.83 Encounter for supervision of other normal pregnancy, third trimester (principal); Z3A.36 36 weeks gestation of pregnancy
CPT/HCPCS: 87653

== ENCOUNTER 2024-09-08 05:41 | Inpatient (IN) | payer OTHER, BC, SELFPAY ==
[2024-09-08 06:43] VITALS: BP 139/78
[2024-09-08] MEDS: LACTATED RINGERS 1,000 ML 999 ML IV ×2 (06:59→08:43)
[2024-09-08 07:00] LABS: Add Manual Diff / Slide Review NO; Hematocrit 38.7 % (36-46); Hemoglobin 13.3 g/dL (12.0-16.0); Lymphocytes Absolute Auto 2800 /uL (1100-4500); Mean Corpuscular HGB Conc 34.4 % (30-36); Mean Corpuscular Hemoglobin 30.6 PG (26-34); Mean Corpuscular Volume 89.0 fL (80-100); Platelet Count 301 X10^3/uL (150-400)
--- NOTE | 2024-09-08 07:17 | PM.OBHP.IH.1 ---
OB HPI Date/Time Date of admission: 09/08/24 Date Patient Seen: 09/08/24 Time Patient Seen: 07:17 History of Present Condition Chief complaint: IUP, 39+3, prior CS x1, FH thromboembolism, GBS - Date of Last Menstrual Period: 12/04/23 SUKHWINDER Calculator Estimated Delivery Date Method Current WG Current Estimate 09/12/24 Conception 39w 3d Other Estimates 09/09/24 LMP (Certain) 39w 6d Estimated Gestational Age (weeks): 39+3 : 2 Para: 1 Narrative: Taty is a 29-year-old , SUKHWINDER 09/12/2024, admitted now at 39+ 3 weeks gestational age for repeat section. Her course has been uneventful and her dating is solid. growth has been appropriate throughout. Patient has a first-degree family history of venous thromboembolism and will therefore require Lovenox subQ . GBS is negative care: none Dating criteria OB: LMP confirmed by 1st trimester US Ultrasounds: normal 1st trimester US and normal mid trimester US Obstetrical complications: none Medical complications OB: none Indications Operative indications ( section): previous uterine surgery Preadmission Labs Last OB Lab Results: Blood Type A Positive 03/06/24, 08:44 Antibody Screen Negative 03/06/24, 08:44 Hct, (36-46) 38.7 % Today, 06:42 Hgb, (12.0-16.0) 13.3 g/dL Today, 06:42 Hep Bs Antigen, (NEGATIVE) Negative s/c 03/06/24, 08:44 Hepatitis C Antibody, (NEGATIVE) Negative s/c 03/06/24, 08:44 Rubella Antibody, (>15) 15.6 IU/mL 03/06/24, 08:44 VZV IgG Antibody, (Non Reactive) Non reactive 03/06/24, 08:44 Glucose 1 Hr 50 gm, (76-139) 106 mg/dL 06/05/24, 09:38 Hemoglobin A1c, (4.0-6.0) 4.8 % 03/06/24, 08:44 Group B Strep (PCR) Neg for grp b strep 08/19/24, 10:15 -: Chlamydia screen: negative, Gonorrhea screen: negative and Urine: negative -: PAP smear: Normal Genetic Screens: Cell-free DNA: Normal and Alpha-fetoprotein: Normal External Labs -: Urine: negative Prior (ies) Past Pregnancies Del. Date GA/Weeks Labor Lgth Wt Sex Route Outcome Anesthesia Place Delv Breastfeed Preg Comp Name 11/17/21 37.5 40 8 lb 4 oz Male live - full term IH 12+ months Tho Hx # Term Pregnancies: 1 Number of Living Children: 1 Evaluation Evaluation Baseline heart rate: 140 Variability: Moderate (6-25) monitor accelerations: Present Monitor Decelerations: Absent Category of Tracing: Reactive Status: Category l PFSH Medical History (Updated 02/10/24 @ 09:17 by Rody Roland, VERENA) Irregular menses Poor latch on, Pain aggravated by breast feeding History of severe pre-eclampsia Acne (~2007) Fx wrist Food allergy Seasonal allergies Surgical History (Updated 03/12/24 @ 16:46 by Christopher Flores MD) History of delivery Encounter for insertion of mirena IUD (~09/2016) [place] teeth removed (~2009) History of bladder surgery Status post urinary system surgery (12/1994) Status post laparoscopic cholecystectomy (12/2013) Family History (Updated 02/10/24 @ 09:24 by Rody Roland RN) Father Hypertension Mother Hypertension Pulmonary emboli DVT (deep venous thrombosis) History of recurrent miscarriages Vanishing twin syndrome Grandfather Aortic rupture Grandfather Hypertension Smoker Grandmother Cancer Lung cancer Heart disease Smoker Grandmother Diabetes mellitus Hypertension Heart disease Uncle Pulmonary emboli Aunt Pulmonary emboli Cancer Brain cancer Smoker Uncle Heart attack Social History (System 06/26/21 @ 09:02 by Camilo Raymond) marital status: number of children: 1 household members: spouse and children lives independently: Yes caregiver/support person: Yes housing: house pets and animals: Yes (Dog) education level: master's degree occupational status: employed (school district, 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) current occupational exposures/hazards: No charli/protestant: Roman Catholic special charli needs: No travel history: recent (local only, upcoming travel to [place] in June) seatbelt use: always water heater temp set < 120 deg: Yes working smoke detector in home: Yes fire extinguisher in home: No carbon monox detector in home: Yes firearms in home: Yes firearms unloaded and locked: Yes do you feel safe at home: Yes Smoking Status: Never smoker second hand exposure: No alcohol intake: former (very occasionally when not ) substance use type: does not use during the past year weight has: decreased > 10 lbs (intentional) well-balanced diet: daily or most days daily servings fruits/ve-4 caffeine: Yes (AM black tea) Type(s) of exercise: walking Meds Home Medications and Allergies Home Medications ?Medication ?Instructions ?Recorded ?Confirmed ?Type cholecalciferol (vitamin D3) 125 125 mcg PO DAILY 04/10/21 09/08/24 History mcg (5,000 unit) capsule vitamin #56-iron 35 mg 1 cap PO DAILY 04/10/21 09/08/24 History and 5 mg-folic acid 1 mg-dha capsule cetirizine 10 mg tablet (Zyrtec) 10 mg PO DAILY PRN Allergy Symptoms 04/26/21 09/08/24 History epinephrine 0.3 mg/0.3 mL 0.3 mg IM Q4H PRN Allergic Reaction 04/26/21 09/08/24 History injection, auto-injector (EpiPen 2-Matt) albuterol sulfate 90 mcg/actuation 2 puff inhalation Q6H PRN 02/10/24 09/08/24 History aerosol inhaler shortness of breath or wheezing aspirin 81 mg tablet,delayed 81 mg PO DAILY 02/10/24 09/08/24 History release (Les Low Dose Aspirin) Allergies Allergy/AdvReac Type Severity Reaction Status Date / Time peanut Allergy Severe Anaphylaxis Verified 09/04/24 11:41 tree nut Allergy Severe Anaphylaxis Verified 09/04/24 11:41 codeine (CODEINE) Allergy Intermediate Hives Verified 09/04/24 11:41 Sulfa (Sulfonamide Allergy Intermediate Hives Verified 09/04/24 11:41 Antibiotics) (SULFA (SULFONAMIDE ANTIBIOTICS)) Review of Systems Review of Systems Narrative: Problem-specific ROS positives included in HPI OB Exam HENMT Head: normal to inspection Eyes General: appearance normal, both eyes and all related structures Resp Effort & Inspection: normal respiratory effort and able to speak in complete sentences Auscultation: clear to auscultation bilaterally Cardio Rate: regular rate Rhythm: regular rhythm Heart Sounds: S1 normal, S2 normal and no murmurs Extremities Lower extremity: Yes normal to inspection GI Inspection: normal to inspection Palpation: Yes soft and Yes no hepatosplenomegaly Uterus Location (Fundal Height): 39 Estimated Weight (lbs): 8 Objective Labs 09/08/24 06:42 Labs: Laboratory Results - last 24 hr 09/08/24 06:42 WBC 14.7 H RBC 4.34 Hgb 13.3 Hct 38.7 MCV 89.0 MCH 30.6 MCHC 34.4 RDW 14.0 Plt Count 301 Neut % (Auto) 75.1 H Lymph % (Auto) 18.8 L [place] % (Auto) 5.4 Eos % (Auto) 0.5 L Baso % (Auto) 0.2 Neut # (Auto) 70935 H Lymph # (Auto) 2800 [place] # (Auto) 800 Eos # (Auto) 100 Baso # (Auto) 0 Assessment and Plan Assessment and Plan Assessment and Plan narrative: ASSESSMENT 1. Intrauterine , 39+ 3 weeks gestational age 2. Prior section x1 3. First-degree family history venous thromboembolism 4. GBS negative status PLAN 1. Admit for repeat section 2. See admission orders Time-Based Coding :: [TOTAL MINUTES] spent with patient and on the chart (including review of chart, obtaining history, exam, reviewing outside data, placing orders, documenting exam and treatment plan, and counseling patient) on [DATE].
--- NOTE | 2024-09-08 07:27 | PM.PREOP ---
Pre-operative Note COVID-19 COVID-19 status: Not tested Interval Note History & Physical reviewed/Exam performed by Physician: Yes Changes to H&P: No
[2024-09-08] MEDS: CITRIC ACID/SODIUM CITRATE 15 ML SOLUTION 30 ML PO (07:34)
[2024-09-08] MEDS: CEFAZOLIN 2 GM/100 ML PREMIX 100 ML IV (08:00)
--- NOTE | 2024-09-08 08:15 | SUR.OPER ---
Supine on Padded OR bed, head on pillow, safety belt at thigh, arms secured on padded arm boards at <90 degrees abduction. Bump under right buttock. Legs uncrossed with pillow under knees, gel pad to heels, tape over blanket to lower legs.
--- NOTE | 2024-09-08 09:04 | SUR.OPER ---
Viable baby girl born at 0833 on 09/[birth year]24.
[2024-09-08] MEDS: ACETAMINOPHEN IV 1,000 MG/100 ML VIAL 400 MG IV (09:05)
[2024-09-08 09:30] VITALS: BP 120/60; PULSE 68; RESP 15; TEMP 36.6; O2SAT 100
[2024-09-08 09:35] VITALS: BP 119/59; PULSE 82; RESP 25; O2SAT 100
--- NOTE | 2024-09-08 09:35 | PM.OBCS.1 ---
Operative Date/Time/Diagnoses Date of procedure: 09/08/24 Time of procedure: 08:15 Pre-op diagnosis: Intrauterine gestation, 39+ 3 weeks Prior section x1 Post-op diagnosis: same Procedure & Clinicians Procedure: Repeat section (low transverse cervical) Same procedure(s) as scheduled: Yes ( ) Indications: Taty is a 29-year-old , SUKHWINDER 09/12/2024, admitted now at 39+ 3 weeks gestational age for repeat section. Her course has been uneventful and her dating is solid. growth has been appropriate throughout. Patient has a first-degree family history of venous thromboembolism and will therefore require Lovenox subQ . GBS is negative Surgeon: Christophre Flores Teacher Public Health: Minna Jay Reason for Teacher Public Health: Teacher Public Health required for the safe, effective, and timely completion of this surgery. Anesthesia Type: Spinal Operative Notes Findings: Viable female infant BW 3420 g (7 lb 8.6 oz), Apgars 7/9, delivered from the vertex presentation. Normal gravid anatomy. Closure Type: primary Specimen(s): cord blood Intraoperative meds administered: Ketorolac and Pitocin Applied: Catheter Estimated Blood Loss (mL): 700 Blood products transfused: none Procedure in detail: With her informed written consent, the patient was taken to the operating room and placed in the supine position for a repeat section procedure, for the indication(s) above. The abdomen was prepped and draped in the usual manner for section and a pre-surgical timeout was taken per [facility] OR protocol. Once effective anesthesia was confirmed, a 15 cm transverse Pfannenstiel incision was made in the skin and taken down through the subcutaneous tissues to the deep fascia. The deep fascia was incised transversely, the rectus abdominal eyes bluntly and sharply, and the peritoneal cavity entered without difficulty. The lower uterine segment was visualized and the position/presentation palpated. A transverse incision at or above the vesicouterine reflection was made with Metzenbaum scissors and transverse hysterotomy performed near the midline. Amniotomy revealed lightly meconium-stained fluid. A single nuchal cord was also noted at delivery. The incision was extended bilaterally with digital traction and the infant was delivered with vacuum assist from the vertex presentation. The infant was vigorous and cord clamping delayed for 60 seconds. The placenta was delivered intact using gentle cord traction and fundal massage.The uterine cavity was then cleared of any clot/debris first with a sloppy wet lap tape followed by a dry lap tape. Ring forceps were then applied to the angles and the midline of the incised MERCEDEZ. A primary closure of the uterus was then accomplished with #1 CCGS in a running interlocking stitch followed by a 2nd layer of #1 CCGS in a running interlocking imbricating stitch. Two additional sutures were required to achieve complete hemostasis. Once pelvic hemostasis was assured, the anterior peritoneum was closed with a running 2-0 Vicryl suture and the fascia closed with #1 Vicryl in a running stitch initiated at both angles and tying separately near the midline. The subcutaneous tissues were reapproximated with 2-0 plain catgut suture using inverted interrupted stitches. The skin edges were then brought together with 4-0 Monocryl in a subcuticular closure and the incision was reinforced with 1 Steri-Strips. An appropriate compression dressing was applied and the patient transferred to PACU for recovery and subsequent transfer to the Center for recuperation. Complications: none Baby 1: Delivery Date: 09/08/24 Delivery Time: 08:33 Infant Gender: Female Presentation: vertex Position: Left Occiput Anterior Placental Delivery Description: Spontaneous and Expressed Cord Vessel Description: 3 Vessels, Nuchal Cord, Loose and Reduced score (1 min): 7 score (5 min): 9 weight: 7 lb 8.637 oz Post-operative Condition: stable Disposition: PACU Aftercare: routine postop
[2024-09-08 09:41] VITALS: BP 120/56; PULSE 69; RESP 29; O2SAT 100
[2024-09-08] MEDS: HYDROMORPHONE 2 MG INJ IV (11:59)
[2024-09-08] MEDS: LANOLIN OINT 7 GM 1 APPLIC TOP (11:59)
[2024-09-08] MEDS: ONDANSETRON 4 MG/2 ML INJ IV (13:09)
[2024-09-08] MEDS: ACETAMINOPHEN 325 MG TABLET 650 MG PO ×2 (15:30→20:46)
[2024-09-08] MEDS: KETOROLAC 30 MG/ML VIAL IV ×2 (15:33→20:46)
[2024-09-08] MEDS: DOCUSATE 100 MG CAPSULE PO (20:47)
[2024-09-08] MEDS: LACTATED RINGERS 500 ML 1000 ML IV (21:01)
[2024-09-09] MEDS: ACETAMINOPHEN 325 MG TABLET 650 MG PO ×4 (02:54→21:17)
[2024-09-09] MEDS: KETOROLAC 30 MG/ML VIAL IV (02:55)
[2024-09-09 06:42] LABS: Add Manual Diff / Slide Review NO; Hematocrit 33.8 % (36-46); Hemoglobin 11.8 g/dL (12.0-16.0); Lymphocytes Absolute Auto 3300 /uL (1100-4500); Mean Corpuscular HGB Conc 35.0 % (30-36); Mean Corpuscular Hemoglobin 31.0 PG (26-34); Mean Corpuscular Volume 88.8 fL (80-100); Platelet Count 264 X10^3/uL (150-400)
[2024-09-09] MEDS: HYDROMORPHONE 2 MG TABLET PO ×4 (06:45→23:59)
[2024-09-09] MEDS: IBUPROFEN 600 MG TABLET PO ×3 (09:08→21:17)
[2024-09-09] MEDS: DOCUSATE 100 MG CAPSULE PO ×2 (09:08→21:17)
[2024-09-09] MEDS: ENOXAPARIN 40 MG/0.4 ML SYRINGE SUBCUT (09:09)
--- NOTE | 2024-09-09 17:37 | PM.OBPN.1 ---
Subjective - OB Subjective Patient comments: no complaints, pain well controlled, incisional pain and tolerating diet [place] baby status: doing well feeding status: exclusively breast feeding Date Patient Seen: 09/09/24 Time Patient Seen: 08:00 Interval history: Doing well with no issues. Patient is ambulating, Selby catheter removed. Tolerating regular diet Exam Vital Signs (past 8 hours): Oxygen Delivery Method Room Air Const General: cooperative and comfortable Nutritional Appearance: average body habitus Orientation: alert and oriented x3 HENMT Head: normal to inspection, atraumatic and abrasion Ears: hearing grossly normal bilaterally Face and sinus: face symmetric Eyes General: appearance normal, both eyes and all related structures Conjunctivae: conjunctivae normal Sclera: sclerae normal EOM: EOM intact bilaterally Neck Neck: normal visual inspection Resp Effort & Inspection: normal respiratory effort and able to speak in complete sentences Auscultation: clear to auscultation bilaterally Cardio Rate: regular rate Rhythm: regular rhythm Heart Sounds: S1 normal, S2 normal and no murmurs GI Inspection: normal to inspection and incision (Surgical dressing clean and dry) Palpation: soft, no hepatosplenomegaly and tender (Mild, diffuse postsurgical tenderness) Auscultation: hypoactive bowel sounds External Female Exam: other (No significant bleeding noted) Extrem General: no calf tenderness Psych Appearance: grossly normal Mental Status: mental status grossly normal Speech and Movement: speech and movement normal Mood: congruent mood Affect: normal affect Attitude: cooperative Thought Process: normal Thought Content: normal Judgment: judgment good Objective Labs 09/09/24 06:32 Labs: Laboratory Results - last 24 hr 09/09/24 06:32 WBC 22.9 H D RBC 3.81 L Hgb 11.8 L Hct 33.8 L MCV 88.8 MCH 31.0 MCHC 35.0 RDW 14.1 Plt Count 264 Neut % (Auto) 79.9 H Lymph % (Auto) 14.2 L [place] % (Auto) 5.3 Eos % (Auto) 0.5 L Baso % (Auto) 0.1 Neut # (Auto) 50641 H Lymph # (Auto) 3300 [place] # (Auto) 1200 H Eos # (Auto) 100 Baso # (Auto) 0 Assessment & Plan Assessment and Plan (1) delivery, delivered, current hospitalization: Status: Acute Plan day: 1 plan OB: routine postop care Comments: Anticipate discharge in a.m. Time-Based Coding :: 20 minutes spent with patient and on the chart (including review of chart, obtaining history, exam, reviewing outside data, placing orders, documenting exam and treatment plan, and counseling patient) on 09/09/2024.
[2024-09-10] MEDS: IBUPROFEN 600 MG TABLET PO ×2 (04:52→11:57)
[2024-09-10] MEDS: ACETAMINOPHEN 325 MG TABLET 650 MG PO ×2 (04:52→11:58)
[2024-09-10] MEDS: HYDROMORPHONE 2 MG TABLET PO ×3 (04:54→14:11)
[2024-09-10] MEDS: DOCUSATE 100 MG CAPSULE PO (09:19)
[2024-09-10] MEDS: PRENATAL VIT,CALC/IRON/FOLIC 1 TABLET 1 TAB PO (09:19)
[2024-09-10] MEDS: ENOXAPARIN 40 MG/0.4 ML SYRINGE SUBCUT (09:21)
--- NOTE | 2024-09-10 11:29 | PM.OBDS.1 ---
Discharge Providers Provider Date of admission: 09/08/24 05:41 Discharge Date: 09/10/24 Primary care physician: Stacy Brock MD Consults: 09/08/24 09:30 Consult to Amusement Centre Manager Routine Comment: 09/08/24 11:32 Consult to Amusement Centre Manager Routine Comment: Discharge provider: Christopher Flores MD Summary Hospital Course Date Patient Seen: 09/10/24 Time Patient Seen: 13:00 Diagnoses: Intrauterine gestation, 39+ 5 weeks gestational age, delivered by repeat section Prior section x1 GBS negative status Hospital Course: Taty was admitted on the morning of 09/09/2024 and later that morning underwent an full repeat section by low transverse cervical incision. Full details of the procedure well summarized on my operative note of that date. Following delivery both mother and baby have done extremely well with the mother experiencing prompt return of bowel and bladder function, she is ambulating independently, tolerating regular diet, and her pain is well-controlled with oral pain medications. She will be discharged at this time in an afebrile normotensive condition at home after counseling regarding precautionary symptoms, limitations of activity, medications, and plans for follow-up which will be in 1 week. Medications at the time of discharge will include resumption of all preadmission medications as well as phone 2 mg p.o. Q 4-6 hours as needed for pain, dispense and Lovenox 40 mg subQ daily times 10 days due to a family history of DVT. Labetalol 200 mg p.o. b.i.d. was also prescribed in error and that prescription has been canceled. Peripartum Data Delivery Method: Section Laceration Description: None Episiotomy description: None Procedures: Spinal block anesthetic Repeat section (low transverse cervical) 1: Gender: Female Disposition of : home Discharge Diagnosis (1) delivery, delivered, current hospitalization: Status: Acute Status at Discharge Cognitive/behavioral status at discharge: oriented Functional status at discharge: independent ambulation Overall status at discharge: patient is progressing back to baseline Time Spent with Patient Time attestation: Total time spent providing and/or coordinating discharge services: 20 Time spent: Less than 30 minutes Objective Labs 09/09/24 06:32 Exam Vital Signs (past 8 hours): Oxygen Delivery Method Room Air Const General: cooperative and comfortable Nutritional Appearance: average body habitus Orientation: alert and oriented x3 HENMT Head: normal to inspection, atraumatic and abrasion Ears: hearing grossly normal bilaterally Face and sinus: face symmetric Eyes General: appearance normal, both eyes and all related structures Conjunctivae: conjunctivae normal Sclera: sclerae normal EOM: EOM intact bilaterally Neck Neck: normal visual inspection Resp Effort & Inspection: normal respiratory effort and able to speak in complete sentences Auscultation: clear to auscultation bilaterally Cardio Rate: regular rate Rhythm: regular rhythm Heart Sounds: S1 normal, S2 normal and no murmurs GI Inspection: normal to inspection and incision (Compression dressing removed and Aquacel applied) Palpation: soft, no hepatosplenomegaly and tender (Mild, diffuse postsurgical tenderness) Auscultation: normal bowel sounds External Female Exam: other (No significant bleeding noted) Extrem General: no calf tenderness Psych Appearance: grossly normal Mental Status: mental status grossly normal Speech and Movement: speech and movement normal Mood: congruent mood Affect: normal affect Attitude: cooperative Thought Process: normal Thought Content: normal Judgment: judgment good Discharge Plan Discharge Plan Patient Disposition: Home Provider Discharge Comment: Please review the written instructions you received when you were discharged from the hospital. Your follow-up appointment will be scheduled for 1 week after delivery and I look forward to seeing you then. If however in the meanwhile you have any issues, concerns, or questions, please contact the office either by phone at [phone], or via the patient portal. Discharge orders & Medications Prescriptions: New hydromorphone [Dilaudid] 2 mg tablet 2 mg PO Q4-6H PRN (Reason: pain) Qty: 20 0RF labetalol 200 mg tablet 200 mg PO BID Qty: 60 3RF enoxaparin [Lovenox] 40 mg/0.4 mL syringe 40 mg SUBCUT DAILY 10 Days Qty: 4 0RF Continued PNV #[id number] acid-dha 35 mg iron-5 mg iron-1 mg capsule 1 cap PO DAILY cholecalciferol (vitamin D3) 125 mcg (5,000 unit) capsule 125 mcg PO DAILY cetirizine [Zyrtec] 10 mg tablet 10 mg PO DAILY PRN (Reason: Allergy Symptoms) epinephrine [EpiPen 2-Matt] 0.3 mg/0.3 mL auto-injector 0.3 mg IM Q4H PRN (Reason: Allergic Reaction) albuterol sulfate 90 mcg/actuation HFA aerosol inhaler 2 puff inhalation Q6H PRN (Reason: shortness of breath or wheezing) aspirin [Les Low Dose Aspirin] 81 mg tablet,delayed release (DR/EC) 81 mg PO DAILY Patient Comments: starting at 12 weeks Follow up/Referrals: Stacy Brock MD [Primary Care Provider, Pediatrics] Christopher Flores MD [Physician, LOT ASSOCIATE] - 10/20/24 10:00 am Referral Note: Please follow up for your one week incision appointment on September 15 @9:00am, please arrive at 8:45am! Additionally, please follow up for your 6 week appointment on October 20 @10:00am. Please arrive @9:45am! Other Ambulatory Orders: Hydromorphone (Routine) Facility: [facility] - Location: Laboratory Ordered By: Christopher Flores Discharge Health Status Multidrug resistant organism: No MDRO Diet/Activity/Treatments Diet: Diet as Tolerated and Regular Activity: As tolerated, pelvic rest Other treatments: [id number] Tylenol and/or ibuprofen may be used for additional pain relief. [id number]-[id number] stool softeners and/or MiraLax may be used as needed for constipation. Skin/Wound/Dressing Care Report to your healthcare provider any signs of infection, such as:: chills, fever, night sweats, increased pain, unusual drainage and unusual redness Dressing: aquacel dressing is waterproof Other wound treatment: please check wound dressing Visit Report/Discharge Packet Instructions: DI for , DI for and Nipple Soreness, DI for Prescription Opioid Use Stand Alone Forms: Discharge: Care, Patient Portal/API, Stroke Signs & Symptoms Discharge Data Primary Care Provider: Stacy Brock
== END 2024-09-10 15:15 | disposition home or self-care (01) | DRG 788 ==
PROVIDERS: Admitting Provider Obstetrics & Gynecology; PCP Internal Medicine; Referring Provider Obstetrics & Gynecology; Visit Provider Obstetrics & Gynecology
PROC: 10D00Z1 Extraction of Products of Conception, Low, Open Approach (ICD-10-PCS; CPT 59514; principal; 2024-09-08 07:45)
DX: O34.219 Maternal care for unspecified type scar from previous cesarean delivery (principal); Z3A.39 39 weeks gestation of pregnancy; Z37.0 Single live birth; Z83.2 Family history of diseases of the blood and blood-forming organs and certain disorders involving the immune mechanism
CPT/HCPCS: 36415; 59050; 85025; 86850; 86900; 86901; J0131; J0690; J1100; J1171; J1650; J1885; J2274; J2405